=== PATIENT | male | born 1985 | race Caucasian/White ===

== ENCOUNTER 2023-06-09 10:22 | Outpatient (AMB) | payer OTHER, SELFPAY ==
--- NOTE | 2023-06-09 04:53 | A.OFFVIS_ITS ---
Intake Intake Visit Reasons: Circumcision consult Intake Note: New Patient is Present for Circumcision/Infection on foreskin Current Medication: None Antibiotic Allergy: None Blood Thinner: None Pharmacy: [facility] Allergies No Known Allergies Allergy (Verified 06/09/23 11:11) Medication List - Last Reconciled 06/09/23 by Jazmin Olivier MD aripiprazole 20 mg PO DAILY blood sugar diagnostic (FreeStyle Lite Strips) As directed citalopram 40 mg PO QAM clotrimazole-betamethasone 1-0.05 % 1 appl topical BID PRN 2 weeks dulaglutide (Trulicity) mg subcut QWEEK empagliflozin (Jardiance) 25 mg PO DAILY lancets (TRUEplus Lancets) As directed lisinopril-hydrochlorothiazide 20-25 mg 1 tab PO DAILY mirtazapine 22.5 mg PO BEDTIME HPI HPI Comments History of Present Illness Details Rudolph is a 37-year-old male who presents today to the office to establish as a new patient for circumcision consult. 06/09/2023? He presents today for circumcision consult. He has a past medical history significant for type 2 diabetes. He is on Trulicity and Jardiance. He was referred to the office by Yordy Banda on 02/27/2023. He has been having problems retracting the foreskin and also getting rash. He has tried a cream to treat his rash that was not beneficial He denies any burning with urination; however, reports itchiness with urination . Plan: Discussed circumcision to be scheduled. Consent was obtained for circumcision procedure. Lotrisone cream prn until the procedure. Ordered hemoglobin A1c. [facility] Medical History Phimosis of penis Type 2 diabetes mellitus without complications Review of Systems Const All systems reviewed & are unremarkable except as noted in HPI and below Reports no additional complaints Eyes Reports no additional complaints ENT Reports no additional complaints Card Denies dyspnea Resp Denies cough and Denies dyspnea GI Reports no additional complaints Musc Reports no additional complaints Skin/Breast Details: vitiligo Denies rash and Denies unusual bruising Neuro Reports no additional complaints Psych Reports no additional complaints Endo Reports no additional complaints Lauri/Lymph Reports no additional complaints Aller/Immun Reports no additional complaints Physical Exam Const General: healthy appearing and no acute distress Nutritional Appearance: obese Orientation/consciousness: patient oriented x3 HEENT Head: Yes normocephalic and Yes atraumatic Eyes Conjunctivae: conjunctivae normal Neck Neck: Yes normal visual inspection Chest Chest palpation & inspection: normal inspection of the chest Resp Effort & Inspection: normal respiratory effort Cardio Rate: regular rate GI Inspection: Yes normal to inspection Palpation (GI): Soft to palpation Penis: uncircumcised and non retractile foreskin Scrotum: scrotum normal Skin Other: vitiligo Neuro General: patient oriented x3 Extrem General: No pedal edema Psych Appearance: grossly normal Affect: normal affect Results AMB Urinalysis, Automated UA Leukoctes 0 Taran/uL Last Edit by SHERYL Rhodes on 06/09/23 11:20 UA Nitrite Negative Last Edit by Leana Acevedo [facility] on 06/09/23 11:20 UA Urobilinogen 0.2 mg/dL Last Edit by SHERYL Rhodes on 06/09/23 11:2 0 UA Protein 15 mg/dL Last Edit by Leana Acevedo [facility] on 06/09/23 11:20 UA pH 5.0 Last Edit by SHERYL Rhodes on 06/09/23 11:20 UA Blood 0 Jules/uL Last Edit by Leana Acevedo [facility] on 06/09/23 11:20 UA Specific Constantia 1.025 Last Edit by Leana Acevedo [facility] on 06/09/23 11: 20 UA Ketone Negative Last Edit by SHERYL Rhodes on 06/09/23 11:20 UA Bilirubin 0 mg/dL Last Edit by Leana Acevedo [facility] on 06/09/23 11:20 UA Glucose 1000 mg/dL Last Edit by Leana Acevedo [facility] on 06/09/23 11:20 Results Reviewed Results Reviewed: Laboratory Last Values Urine pH (Auto) 5.0 06/09/23 11:12 Specific Constantia (Auto) 1.025 06/09/23 11:12 Urine Protein (Auto) 15 mg/dL 06/09/23 11:12 Glucose (UA)(Auto) 1000 mg/dL 06/09/23 11:12 Urine Ketones (Auto) Negative 06/09/23 11:12 Urine Blood (Auto) 0 Jules/uL 06/09/23 11:12 Urine Nitrite (Auto) Negative 06/09/23 11:12 Urine Bilirubin (Auto) 0 mg/dL 06/09/23 11:12 Urine Urobilinogen (Auto) 0.2 mg/dL 06/09/23 11:12 Leukocyte Esterase (Auto) 0 Taran/uL 06/09/23 11:12 Assessment & Plan Assessment & Plan (1) Balanitis: Code(s): N48.1 - Balanitis Plan Discussed circumcision to be scheduled. Consent was obtained for circumcision procedure. Lotrisone cream prn until procedure Ordered hemoglobin A1c. Orders: Orders AMB Urinalysis Automated Today Z13.9 - Encounter for screening, unspecified Medications: New clotrimazole-betamethasone 1-0.05 % 1 appl topical BID 2 weeks PRN 45 grams 1RF balanitis Patient Instructions: The patient had an opportunity to ask questions regarding treatment plan. All questions were answered. Imaging, Laboratory studies and physical exam results were discussed and reviewed in detail. No major barriers to understanding were identified. The patient expressed understanding and agreement with the above treatment plan.? ? ? The patient is aware they should contact our office by phone for worsening of their current condition or the appearance of new symptoms. Compliance is encouraged with any medications and followup testing that is ordered.? ? ? It is a privilege to be allowed the opportunity to participate in the urologic care of your patient. If you have any questions or concerns regarding treatment for the above conditions please do not hesitate to contact me. The office telephone contact is [phone].? ? ? This note is constructed in part using voice recognition software. While every effort has been made to ensure accuracy ranch cook errors may have been included.? ? ? Yours sincerely,? ? ? Jazmin Olivier MD? Coding Level of Care Code New Pt Level 4 (16464) Diagnoses Balanitis N48.1
== END 2023-06-09 11:33 | disposition home or self-care (01) ==
PROVIDERS: PCP Internal Medicine; Visit Provider Urology
DX: Z13.9 Encounter for screening, unspecified (principal); N48.1 Balanitis
CPT/HCPCS: 99204

== ENCOUNTER → 2023-06-09 10:22 | Outpatient (BNVA) | payer OTHER, SELFPAY | PROVIDERS: PCP Internal Medicine; Visit Provider Urology | DX: Z41.2 Encounter for routine and ritual male circumcision (principal); N47.1 Phimosis; N48.1 Balanitis; E11.9 Type 2 diabetes mellitus without complications | CPT/HCPCS: 81003; 99202 ==

== ENCOUNTER 2023-07-04 10:30 | Outpatient (REF) | payer OTHER, SELFPAY ==
[2023-07-04 11:53] LABS: Estimated Average Glucose 203 mg/dL; Hemoglobin A1c % 8.7 % (<6.0)
[2023-07-04 12:04] LABS: Glucose Fasting 159 mg/dL (60-99)
== END 2023-07-04 10:31 | disposition home or self-care (01) ==
LOC: HO.LAB 10:30
PROVIDERS: Visit Provider Urology
DX: E11.9 Type 2 diabetes mellitus without complications (principal); N48.1 Balanitis
CPT/HCPCS: 36415; 82947; 83036

== ENCOUNTER 2023-07-15 06:53 | Day surgery (SDC) | payer OTHER, SELFPAY ==
[2023-07-11 11:05] VITALS: BMI 43.6
[2023-07-11 11:35] VITALS: BMI 38.0
--- NOTE | 2023-07-14 09:36 | P.CONAN_ITS ---
Documented by User: Monica Rosenberg NP 07/14/23 09:37 HPI - Anesthesia Eval Consult details Narrative: 37yo M for Circumcision PMFSH Active Problems Active Problems: All Active Problems (Updated 07/11/23 @ 11:35 by Paz Chun, J CARLOS) Diabetes (Acute) Balanitis (Acute) Past Medical History Medical History (Updated 07/15/23 @ 07:36 by Beverley Heart, RN) GUILLERMINA (obstructive sleep apnea) Depression Anxiety HTN (hypertension) Type 2 diabetes mellitus without complications Phimosis of penis Surgical History Surgical History (Updated 07/15/23 @ 07:36 by Beverley Heart, RN) Hx of wisdom tooth extraction Social History Social History (Updated 07/11/23 @ 11:38 by Paz Chun RN) Patient Tobacco Use Status: Never used Tobacco Use of substances other than those prescribed or required for medical reasons: No Are you DNR?: No Advance Directives: No Advance Directives Information Provided: Yes Advance Directives on File: No Meds Allergies Allergy/AdvReac Type Severity Reaction Status Date / Time No Known Allergies Allergy Verified 07/15/23 07:36 Home Medications Medication Instructions Recorded Confirmed Last Taken Type aripiprazole 20 mg tablet 20 mg PO DAILY 06/09/23 07/11/23 Unknown History blood sugar diagnostic (FreeStyle #10 ea 06/09/23 06/09/23 Unknown History Lite Strips) citalopram 40 mg tablet 40 mg PO QAM 06/09/23 07/11/23 Unknown History dulaglutide 1.5 mg/0.5 mL mg subcut QWEEK 06/09/23 06/09/23 Unknown History subcutaneous pen injector (Trulicity) empagliflozin 25 mg tablet 25 mg PO DAILY 06/09/23 07/11/23 Unknown History (Jardiance) lancets 33 gauge (TRUEplus Lancets) #100 ea 06/09/23 06/09/23 Unknown History lisinopril 20 1 tab PO DAILY 06/09/23 07/11/23 Unknown History mg-hydrochlorothiazide 25 mg tablet mirtazapine 15 mg tablet 22.5 mg PO BEDTIME 06/09/23 07/11/23 Unknown History Exam Exam Date and Time: July 14, 2023 0936 Height,Weight and Vital Signs: Height 5 ft 4 in Weight 113.398 kg Assessment and Plan Assessment Anesthesia Assessment: Chart Reviewed Documented by User: Vazquez Rodriguez MD 07/15/23 08:29 [facility] Past Medical History Medical History (Updated 07/15/23 @ 07:36 by Beverley Heart RN) GUILLERMINA (obstructive sleep apnea) Depression Anxiety HTN (hypertension) Type 2 diabetes mellitus without complications Phimosis of penis Family History Family history of problems with anesthesia: No Surgical History Surgical History (Updated 07/15/23 @ 07:36 by Beverley Heart RN) Hx of wisdom tooth extraction History of Problems with Anesthesia: No Social History Social History (Updated 07/11/23 @ 11:38 by Paz Chun RN) Patient Tobacco Use Status: Never used Tobacco Use of substances other than those prescribed or required for medical reasons: No Are you DNR?: No Advance Directives: No Advance Directives Information Provided: Yes Advance Directives on File: No Meds Allergies Allergy/AdvReac Type Severity Reaction Status Date / Time No Known Allergies Allergy Verified 07/15/23 07:36 Home Medications Medication Instructions Recorded Confirmed Last Taken Type aripiprazole 20 mg tablet 20 mg PO DAILY 06/09/23 07/11/23 Unknown History blood sugar diagnostic (FreeStyle #10 ea 06/09/23 06/09/23 Unknown History Lite Strips) citalopram 40 mg tablet 40 mg PO QAM 06/09/23 07/11/23 Unknown History dulaglutide 1.5 mg/0.5 mL mg subcut QWEEK 06/09/23 06/09/23 Unknown History subcutaneous pen injector (Trulicity) empagliflozin 25 mg tablet 25 mg PO DAILY 06/09/23 07/11/23 Unknown History (Jardiance) lancets 33 gauge (TRUEplus Lancets) #100 ea 06/09/23 06/09/23 Unknown History lisinopril 20 1 tab PO DAILY 06/09/23 07/11/23 Unknown History mg-hydrochlorothiazide 25 mg tablet mirtazapine 15 mg tablet 22.5 mg PO BEDTIME 06/09/23 07/11/23 Unknown History Exam Airway Mallampati Class: II TM Dist: <=3cm Neck ROM: Full Loose/Missing/Broken Teeth: Yes and Upper Heart: ok Lungs: ok Assessment and Plan Assessment Anesthesia Assessment: Anesthesia Plan Discussed Final Anesthetic Review Family History of Problems with Anesthesia: No History of Problems with Anesthesia: No NPO: Yes ASA Class: III Final Preanesthetic Review: No Changes in Pt Med Stat, Meds/Allgs Chart Reviewed, Consent Obtained/Reviewed and Anes Risks/Benef Reviewed Patient Risk: Intermediate Procedure Risk: Low Anesthetic Plan Anesthetic Plan: GA and Agree w/ Assess. and Plan Disposition: Standard PACU
[2023-07-15] VITALS (7 sets, daily range): BP systolic 102–123; BP diastolic 40–69; PULSE 69–78; RESP 12–18; TEMP 36.3–37.1; O2SAT 91–96
[2023-07-15] MEDS: Lactated Ringers 1,000 ML 100 ML IVCONT (07:18)
[2023-07-15 07:20] LABS: Glucose, Whole Blood 215 mg/dL (60-115)
--- NOTE | 2023-07-15 08:19 | PC.NURSE ---
dr. moore aware of poc and that patient uses cpap and lcta - slightly diminished in bilateral bases. no interventions at this time.
--- NOTE | 2023-07-15 10:24 | W.PM.OPN ---
Operative Note Operative Note Date of Service: 07/15/23 Narrative: PreOperative Diagnosis:? ? Balanitis, phimosis Post Operative Diagnosis:?Balanitis, phimosis Procedure:?Circumcision Surgeon:?Dr Jazmin Olivier Anesthesia:? General Procedure: After informed consent was verified the patient was brought to the operating room and placed in a supine position.? Anesthesia was performed per protocol. The patient was prepped and draped in the usual sterile fashion. Safety pause time-out was performed. Antibiotics confirmed. Penile block was performed with mixture of 1% lidocaine and 0.5% marcaine plain. With the foreskin over the glans a circumferential incision is made through the skin and superficial dartos, at the level of the mcgrath. The fore skin was then retracted and a circumferential incision was made 0.5 cm below the mcgrath. The foreskin was removed with cautery. The skin was closed in 4 quadrants with 4-0 chromic, each quadrant closed with interrupted 4-0 chromic, bacitracin ointment was used over the incision and incision covered with cling. The patient tolerated the procedure well and was transferred to the recovery area upon completion. Complications: None
[2023-07-15] MEDS: oxyCODONE HCl Immed Release 5 MG TABLET PO (10:42)
== END 2023-07-15 11:31 | disposition home or self-care (01) ==
PROVIDERS: Visit Provider Urology
PROC: (CPT 54161; principal; 2023-07-15 08:40)
DX: N48.1 Balanitis (principal); N47.1 Phimosis; I10 Essential (primary) hypertension; E11.9 Type 2 diabetes mellitus without complications; Z79.85 Long-term (current) use of injectable non-insulin antidiabetic drugs; Z79.899 Other long term (current) drug therapy
CPT/HCPCS: 54161; 82947; 88304; J0131; J0690; J1885; J2405; J2795; J3010

== ENCOUNTER → 2023-07-15 06:53 | Outpatient (BNV) | payer OTHER, SELFPAY | PROVIDERS: Visit Provider Urology | DX: N48.1 Balanitis (principal) | CPT/HCPCS: 54161 ==

== ENCOUNTER 2024-06-21 09:32 | Outpatient (REF) | payer OTHER, SELFPAY ==
[2024-06-21 14:58] LABS: Alanine Aminotransferase 48 U/L (0-40); Albumin Level 4.8 g/dL (3.5-5.0); Alkaline Phosphatase 89 U/L (39-117); Anion Gap 16 (12-20); Aspartate Amino Transferase 41 U/L (5-37); Blood Urea Nitrogen 10 mg/dL (9-16); Calcium 10.4 mg/dL (8.4-10.2); Carbon Dioxide 26 mmol/L (22-29); Chloride 105 mmol/L (96-108); Cholesterol 182 mg/dL (<200); Estimated Glomerular Filt Rate > 60; Glucose Random 150 mg/dL (60-115); HDL Cholesterol 34 mg/dL (>40); LDL Cholesterol Calculated 81 mg/dL (<100); Potassium 3.3 mmol/L (3.3-5.1); Sodium 144 mmol/L (135-145); Total Protein 8.4 g/dL (6.5-8.0); Triglycerides 339 mg/dL (<150)
[2024-06-21 15:16] LABS: TSH reflex Free T4 2.48 uIU/mL (0.32-4.0)
[2024-06-21 15:24] LABS: Creatinine Urine 71.49 mg/dL; Microalbum/Creatinine Ratio Ur 76.9 ug/mg cr (<30)
[2024-06-22 04:36] LABS: ~HepC Num1 0.21 S/CO (0.00-0.79); ~Hepatitis C Antibody Nonreactive (Nonreactive)
[2024-06-22 04:52] LABS: HIV AB/AG Nonreactive (Nonreactive); HIV Num 1 0.05 S/CO (0.00-0.99)
== END 2024-06-21 09:33 | disposition home or self-care (01) ==
LOC: HO.CHCLDS 09:32
PROVIDERS: Visit Provider Internal Medicine
DX: L21.9 Seborrheic dermatitis, unspecified (principal); E11.9 Type 2 diabetes mellitus without complications; I10 Essential (primary) hypertension
CPT/HCPCS: 36415; 80053; 80061; 82043; 82570; 84443; 86803; 87389

== ENCOUNTER 2025-02-10 09:15 | Outpatient (REF) | payer OTHER, SELFPAY ==
--- OUTSIDE RECORDS SUMMARY | 2025-02-10 10:02 | XMS_ITS | Encounter Summary ---
Author Organization [employer] Address [address] [facility] 7[address] [place] [address] Care Team Providers Care Die Cast Technician Name Role Phone Yordy Banda MD Primary Care Provider [phone] Cherie Fung PharmD Unavailable [phone] Encounter Details Date Type Department Care Team (Latest Contact Info) Description 02/10/2025 Travel Social History Tobacco Use Types Packs/Day Years Used Date Smoking Tobacco: Never Smokeless Tobacco: Never Alcohol Use Standard Drinks/Week Comments Never 0 (1 standard drink = 0.6 oz pur e alcohol) Depression Answer Date Recorded Patient Health Questionnaire-9 Score 0 02/27/2023 Housing Stability Answer Date Recorded What is your housing situation today? I am not s ure 11/08/[address] you li ve. Do you have problems with any of the following? Inadequate heat 11/08/2024 Food Insecurity Answer Date Recorded Within the past 12 months, y ou worried that your food would run out before you got money to buy more: Never True 2024 Within the past 12 months,th e food you bought just didn't last and you didn't have enough money to get more: Sometimes True 11/08/2024 Transportation Answer Date Recorded In the past 12 months, has l ack of transportation kept you from medical appts, meetings, work or from getting things needed for daily living? No 03/25/2024 Utilities Answer Date Recorded In the past 12 months, has t he electric, gas, oil or water company threatened to shut off services in your home? No 03/25/2024 Depression Answer Date Recorded Patient Health Questionnaire-2 Score 1 11/08/2024 Internet Access Answer Date Recorded Internet Access Q1 Yes 11/08/2024 Internet Access Q2 Not on file 11/08/2024 Sex and Gender Information Value Date Recorded Sex Assigned at Male 08/12/2022 10:32 AM EDT Legal Sex Male 10:32 AM EDT Gender Identity Male 08/12/2022 10:32 AM EDT Sexual Orientation Pratt 11/14/2022 9: 24 AM EST documented as of this encounter Plan of Treatment Upcoming Encounters Date Type Department Care Team (Late st Contact Info) Description 02/21/2025 2:00 PM EDT Office Visit [facility] [address] [place] [address] Yordy Banda MD [address] [place] [address] 03/10/2025 9:00 AM EDT Telemedicine [facility] [address] [place] [address] Cherie Fung, [place] [address] [place] [address] 05/12/2025 9:15 AM EDT Office Visit [facility] [address] [place] [address] Yordy Banda MD [address] [place] [address] documented as of this encounter Goals Goal Patient Goal Type Associated Problems Recent Progress Patient-Stated? Author Hemoglobin A1c < 7 Result Component 8.4(02/07/2025 10:03 AM EDT) No Prasanna Pryor, PharmD documented as of this encounter Visit Diagnoses Not on filedocumented in this encounter Additional Health Concerns Assessment Noted Time PHQ-9 Depression Total Score: 0 02/28/20 23 9:14 AM EDT documented as of this encounter Care Teams Die Cast Technician Relationship Specialty Start Date End Date Yordy Banda MD [address] [place] [address] PCP - General Internal Medicine 08/21/17 Cherie Fung, PharmD [address] [place] [address] Pharmacist Internal Medicine 11/09/24 documented as of this encounter
--- OUTSIDE RECORDS SUMMARY | 2025-02-10 10:02 | XMS_ITS | Encounter Summary ---
Author Organization [employer] Address [address] [facility] 7 [place] [address] Care Team Providers Care Chair Spring Assembler Name Role Phone Yordy Banda MD Primary Care Provider [phone] Prasanna Pryor PharmD Unavailable Unavail able Cherie Fung PharmD Unavailable [phone] Reason for Visit * Reason Onset Date Comments Results 07/30/2024 Encounter Details Date Type Department Care Team ([facility] st Contact Info) Description 07/30/2024 Telephone [facility] MED[facility] [address] [place] [address] Yordy Banda MD [address] [place] [address] Results Social History Tobacco Use Types Packs/Day Years Used Date Smoking Tobacco: Never Smokeless Tobacco: Never Alcohol Use Standard Drinks/Week Comments Never 0 (1 standard drink = 0.6 oz pur e alcohol) Depression Answer Date Recorded Patient Health Questionnaire-9 Score 0 02/27/2023 Housing Stability Answer Date Recorded What is your housing situation today? I have francisca steinberg 03/25/[address] you li ve. Do you have problems with any of the following? None of the above 03/25/2024 Food Insecurity Answer Date Recorded Within the past 12 months, y ou worried that your food would run out before you got money to buy more: Never True 03/25/2024 Within the past 12 months,th e food you bought just didn't last and you didn't have enough money to get more: Never True Transportation Answer Date Recorded In the past [...] Answer Date Recorded Patient Health Questionnaire-2 Score 0 02/27/2023 Sex and Gender Information Value Date Recorded Sex Assigned at Male 08/12/2022 10:32 AM EDT Legal Sex Male 10:32 AM EDT Gender Identity Male 08/12/2022 10:32 AM EDT Sexual Orientation Pratt 11/14/2022 9: 24 AM EST documented as of this encounter Miscellaneous Notes * Telephone Encounter - Dev Morley - 07/30/2024 11:43 AM EDT TC from pt requesting call back regarding Results. Type of results: US Date when done: 07/27 Facility: [facility] documented in this encounter Plan of Treatment Upcoming Encounters Date Type Department Care Team (Late st Contact Info) Description 02/21/2025 2:00 PM EDT Office Visit [facility] MED & PEDS [address] [place] [address] Yordy Banda MD [address] [place] [phone] 03/10/2025 9:00 AM EDT Telemedicine [facility] MED [facility] PED[facility] [address] [place] [address] Cherie Fung, PharmD [address] [place] [address] 05/12/2025 9:15 AM EDT Office Visit [facility] MED [facility] PEDS [address] [place] [address] Yordy Banda MD [address] [place] [address] documented as of this encounter Goals Goal Patient Goal Type Associated Problems Recent Progress Patient-Stated? Author Hemoglobin A1c < 7 Result Component 8.4(02/07/2025 10:03 AM EDT) No Prasanna Pryor, PharmD documented as of this encounter Visit Diagnoses Not on filedocumented in this encounter Additional Health Concerns Assessment Noted Time PHQ-9 Depression Total Score: 0 02/28/20 9:14 AM EDT documented as of this encounter Care Teams Chair Spring Assembler Relationship Specialty Start Date End Date Yordy Banda MD [address] [place] [address] PCP - General Internal Medicine 08/21/17 Prasanna Pryor, PharmD [address] [place] [address] Pharmacist Internal Medicine 02/10/23 11/09/24 Cherie Fung, JoannD [address] [place] [address] Pharmacist Internal Medicine 11/09/24 documented as of this encounter
--- OUTSIDE RECORDS SUMMARY | 2025-02-10 10:02 | XMS_ITS | Encounter Summary ---
Author Organization [employer] Address [address] [facility] 7 [place] [address] Care Team Providers Care Library Attendant Name Role Phone Yordy Banda MD Primary Care Provider [phone] Cherie Fung PharmD Unavailable [phone] Encounter Details Date Type Department Care Team ([facility] st Contact Info) Description 02/06/2025 Orders Only [facility] PEDS [address] [place], [place] [phone] Yordy Banda MD [address] [place] [address] Social History Tobacco Use Types Packs/Day Years [...] Description 02/21/2025 2:00 PM EDT Office Visit [facility] [address] [place] [address] Yordy Banda MD [address] [place] [address] 03/10/2025 9:00 AM EDT Telemedicine [facility] [address] [place] [address] Cherie Fung PharmD [address] [place] [phone] 05/12/2025 9:15 AM EDT Office Visit [facility] [address] [place] [address] Yordy Banda MD [address] [place] [address] documented as of this encounter Goals Goal [...] documented as of this encounter Care Teams Library Attendant Relationship Specialty Start Date End Date Yordy Banda MD [address] [place] [address] PCP - General Internal Medicine 08/21/17 Cherie Fung, JoannD [address] [place] [address] Pharmacist Internal Medicine 11/09/24 documented as of this encounter
--- OUTSIDE RECORDS SUMMARY | 2025-02-10 10:02 | XMS_ITS | Encounter Summary ---
Author Organization [employer] Address [address] [facility] 7 [place] [address] Care Team Providers Care Assembler Molded Frames Name Role Phone Yordy Banda MD Primary Care Provider [phone] Prasanna Pryor PharmD Unavailable Unavail able Cherie Fung PharmD Unavailable [phone] Encounter Details Date Type Department Care Team ([facility] st Contact Info) Description 10/25/2024 Orders Only [facility] & PEDS [address] [place], [place] [phone] Yordy Banda MD [address] [place] [address] Encounter for HIV pre-exposure prophylaxis Social History Tobacco Use Types Packs/Day Years [...] Office Visit [facility] [address] [place] [address] Yordy Banda MD [address] [place] [phone] 03/10/2025 9:00 AM EDT Telemedicine [facility] [address] [place] [address] Cherie Fung PharmD [address] [place] [address] 05/12/2025 9:15 AM EDT Office Visit [facility] [address] [place] [address] Yordy Banda MD [address] [place] [address] documented as of this encounter Goals Goal Patient Goal Type Associated Problems Recent Progress Patient-Stated? Author Hemoglobin A1c < 7 Result Component 8.4(02/07/2025 10:03 AM EDT) No Prasanna Pryor, PharmD documented as of this encounter Visit Diagnoses Diagnosis Encounter for HIV pre-exposure prophylaxis documented in this encounter Additional Health Concerns Assessment Noted Time PHQ-9 Depression Total Score: 0 02/28/20 23 9:14 AM EDT documented as of this encounter Care Teams Assembler Molded Frames Relationship Specialty Start Date End Date Yordy Banda MD [address] [place] [address] PCP - General Internal Medicine 08/21/17 Prasanna Pryor, JoannD [address] [place] [address] Pharmacist Internal Medicine 02/10/23 11/09/24 Cherie Fung, JoannD [address] [place] [phone] Pharmacist Internal Medicine 11/09/24 documented as of this encounter
--- OUTSIDE RECORDS SUMMARY | 2025-02-10 10:02 | XMS_ITS | Encounter Summary ---
Author Organization [employer] Address [address] [place] [address] [address] [place] [address] Care Team Providers Care [employer] Travel Counselor Name Role Phone Yordy Banda MD Primary Care Provider [phone] Cherie Fung PharmD Unavailable [phone] Reason for Visit * Reason Comments Follow-up Chronic conditions Encounter Details Date Type Department Care Team ([facility] Contact Info) Description 02/07/2025 11:00 AM EDT Office Visit [facility] [address], [place] [id number] Yordy Banda MD [address] [place] [address] Herpes zoster without complication (Primary Dx); Type 2 diabetes mellitus without complication, without long-term current use of insulin ([facility]); Subconjunctival hemorrhage of right eye; Obstructive sleep apnea syndrome; Dietary counseling; Exercise counseling; Class 2 severe obesity due to excess calories with serious comorbidity and body mass index (BMI) of 38.0 to 38.9 in adult ([facility]/HCC) Social History Tobacco Use Types Packs/Day Years [...] AM EST documented as of this encounter Last Filed Vital Signs Vital Sign Reading Time Taken Comments Blood Pressure 130/78 02/07/2025 10:02 AM EDT Pulse 82 02/07/2025 10:02 AM EDT Temperature 36.5 ??C (97.7 ??F) 02/07/2025 10:02 AM E DT Respiratory Rate 14 02/07/2025 10:02 AM EDT Oxygen Saturation 98% 02/07/2025 10:02 AM EDT Inhaled Oxygen Concentration - - Weight 116 kg (256 lb) 02/07/2025 10:02 AM EDT Height 172.7 cm (5' 8 ) 02/07/2025 10:02 AM EDT Body Mass Index 38.92 02/07/2025 10:02 AM EDT documented in this encounter Progress Notes * Yordy Banda MD - 02/07/2025 11:00 AM EDT SUBJECTIVE Rudolph Rutledge is a 39 y.o. male who presents for Follow-up (Chronic conditions ). HPI 1) h/o T2DM. Started on Mounjaro. Medication well tolerated. No reported hypoglycemia 2) redness/swelling and itchiness of the left arm x 2 days in a pt w/ h/o Shingle. 3) redness of the right eye x 1 week. Slowly improving. No trauma. No drainage/itchiness. 4) h/o sleep apnea. Pt's CPAP shows an error code. Pt has not used his CPAP x about 1 month. Patient Active Problem List Diagnosis Asperger's disorder Chronic low back pain Depressive disorder Heel pain Hypertensive disorder Obstructive sleep apnea syndrome Type 2 diabetes mellitus (CMS/HCC) Swelling of left eyelid Herpes zoster without complication Obesity (BMI 30-39.9) Allergies Allergen Reactions Metformin Diarrhea Current Outpatient Medications on File Prior to Visit Medication Sig Dispense Refill Alcohol Swabs (Alcohol Prep) 70 % pads TEST BLOOD SUGAR THREE TIMES DAILY 100 each 11 ARIPiprazole (Abilify) 20 MG tablet Take 1 tablet by mouth at bed time. Blood Glucose Monitoring Suppl (SaveMeetingStyle [place] Lite) w/Device kit Use to test blood sugar 1 times daily 1 kit 0 chlorhexidine (Hibiclens) 4 % external liquid Apply topically if needed each day for wound care. 118 mL 0 cholecalciferol (Vitamin D3) 25 MCG (1000 UT) tablet Take by mouth in the morning. citalopram (CeleXA) 40 MG tablet Take 40 mg by mouth in the morning. Descovy 200-25 MG tablet TAKE ONE TABLET EVERY MORNING 30 tablet 2 Easy Touch Lancets 33G/Twist misc TEST BLOOD SUGAR THREE TIMES DAILY 100 each 11 econazole nitrate 1 % cream Apply topically Once per day. 30 g 0 FREESTYLE LITE test strip TEST BLOOD SUGAR THREE TIMES DAILY 100 strip 11 gabapentin (Neurontin) 100 MG capsule Take 3 capsules (300 mg) by mouth every 8 (eight) hours. 270 capsule 11 glucose 4 g chewable tablet Chew 4 tablets (16 g) if needed for low blood sugar. 50 tablet 11 glucose-vitamin C 4-6 GM-MG oral gel To take 1 tab if FS < 70 mg/dl Jardiance 25 MG TAKE 1 TABLET EVERY MORNING 30 tablet 5 ketoconazole (Nizoral) 2 % shampoo Apply topically 2 (two) times a week. 120 mL 1 lisinopril-hydroCHLOROthiazide 20-25 MG tablet TAKE ONE TABLET EVERY MORNING 90 tablet 1 mirtazapine (Remeron) 15 MG tablet Take 1.5 tablets by mouth at bedtime. repaglinide (Prandin) 0.5 MG tablet Take 1 tablet (0.5 mg) by mouth before breakfast, before lunch,and before evening meal. 90 tablet 11 rosuvastatin (Crestor) 20 MG tablet Take 1 tablet (20 mg) by mouth Once per day. 30 tablet 11 Tirzepatide (Mounjaro) 5 MG/0.5ML solution auto-injector Inject 5 mg under the skin 1 (one) time per week. 2 mL 2 No current facility-administered medications on file prior to visit. Review of Systems OBJECTIVE Vitals: 02/07/25 1002 BP: 130/78 BP Location: Left arm Patient Position: Sitting BP Cuff Size: Large adult Pulse: 82 Resp: 14 Temp: 97.7 ??F (36.5 ??C) TempSrc: Oral SpO2: 98% Weight: 256 lb (116 kg) Height: 5' 8 (1.727 m) Physical Exam Constitutional: General: He is not in acute distress. Appearance: Normal appearance. He is not ill-appearing, toxic-appearing or diaphoretic. Eyes: General: Right eye: No foreign body. Left eye: No foreign body. Conjunctiva/sclera: Right eye: Hemorrhage present. Cardiovascular: Rate and Rhythm: Normal rate and regular rhythm. Pulmonary: Effort: Pulmonary effort is normal. Skin: General: Skin is warm. Comments: 1.5x1.5 cm round and slightly raised erythematous patch of the left posterior arm. Neurological: General: No focal deficit present. Mental Status: He is alert. Assessment/Plan Assessment/Plan Diagnoses and all orders for this visit: Herpes zoster without complication - valACYclovir (Valtrex) 1 g tablet; Take 1 tablet (1,000 mg) by mouth 2 times daily for 7 days. Type 2 diabetes mellitus without complication, without long-term current use of insulin ([facility]) Comments: Improved on Mounjaro. A1c 8.4% but still not at goal Follow up w/ Cherie as scheduled for titration of his medication. Low carb diet. Orders: - POCT A1C - POCT glucose manually resulted Subconjunctival hemorrhage of right eye - dextran 70-hypromellose (artificial tears) 0.1-0.3 % ophthalmic solution; Administer 1 drop into the right eye if needed in the morning, at noon, and at bedtime for dry eyes. To contact the office if the lesion is not completely resolved in the next week or so. Obstructive sleep apnea syndrome Comments: advised to call his supplier. Pt is to inform us if a new sleep study is needed for us to order it. Dietary counseling Exercise counseling Class 2 severe obesity due to excess calories with serious comorbidity and body mass index (BMI) of38.0 to 38.9 in adult ([facility]) Dietary Recommendations: Fruits, vegetables, whole grains, protein foods, and fat-free or low-fat dairy products are healthychoices. Eat different types of protein foods in your diet. This can include seafood, lean meats, poultry, beans, peas, lentils, nuts, seeds, soy products, and eggs. Limit foods and beverages higher in added sugars, saturated fat, and sodium. Exercise Recommendations: At least 150 minutes of moderate-intensity physical activity per week, or an equivalent combinationof moderate- and vigorous-intensity activity documented in this encounter Plan of Treatment Upcoming Encounters Date Type Department Care Team (Late st Contact Info) Description 02/21/2025 2:00 PM EDT Office Visit [facility] [address] [place] [address] Yordy Banda MD [address] [place] [address] 03/10/2025 9:00 AM EDT Telemedicine [facility] [address] [place] [address] Cherie Fung, PharmD [address] [place] [address] 05/12/2025 9:15 AM EDT Office Visit [facility] [address] [place] [address] Yordy Banda MD [address] [place] [address] documented as of this encounter Goals Goal Patient Goal Type Associated Problems Recent Progress Patient-Stated? Author Hemoglobin A1c < 7 Result Component 8.4(02/07/2025 10:03 AM EDT) No Prasanna Pryor, JoannD documented as of this encounter Procedures Procedure Name Priority Date/Time Associated Diagnosis Comments POCT GLYCATED HEMOGLOBIN, TOTAL Routine 02/07/2025 10:03 AM EDT Type 2 diabetes mellitus without complication, without long-term current use of insulin ([facility]) POCT GLUCOSE Routine 02/07/2025 10:03 AM EDT Type 2 diabetes mellitus without complication, without long-term current use of insulin ([facility]) documented in this encounter Results * (ABNORMAL) POCT glucose manually resulted (02/07/2025 10:03 AM EDT) Glucose Blood, POC 210(A) 60 - 200 mg/dL QC Media Lot # Comment:[id number] Lot# Expiration Date Comment:04/14/2025 Blood Capillary blood specimen / Unknown 02/07/2025 10:03 AM EDT us Yordy Banda MD POINT OF CARE TEST ENTER/ED IT ORDERABLES Final Result * (ABNORMAL) POCT A1C (02/07/2025 10:03 AM EDT) Hemoglobin A1C 8.4(A) 4.0 - 6.0 % QC Media Lot # Comment:[id number] Lot# Expiration Date Comment:08/31/2026 Blood 02/07/2025 10:0 3 AM EDT us Yordy Banda MD POINT OF CARE TEST ENTER/ED IT ORDERABLES Final Result documented in this encounter Visit Diagnoses Diagnosis Herpes zoster without complication- Primary Type 2 diabetes mellitus without complication, without long-term current use of insulin ([facility]) Subconjunctival hemorrhage of right eye Obstructive sleep apnea syndrome Obstructive sleep apnea (adult) (pediatric) Dietary counseling Dietary surveillance and counseling Exercise counseling Class 2 severe obesity due to excess calories with serious comorbidity and body mass index (BMI) of 38.0 to 38.9 in adult (CMS/HCC) documented in this encounter Additional Health Concerns Assessment Noted Time PHQ-9 Depression Total Score: 0 02/28/20 23 9:14 AM EDT documented as of this encounter Care Teams [employer] Counselor Relationship Specialty Start Date End Date Yordy Banda MD [address] [place] [address] PCP - General Internal Medicine 08/21/17 Cherie Fung PharmD [address] [place] [address] Pharmacist Internal Medicine 11/09/24 documented as of this encounter
--- OUTSIDE RECORDS SUMMARY | 2025-02-10 10:02 | XMS_ITS | Clinical Summary ---
Author Organization [email or web address] Address 75 [facility] 7t [place] [address] Care Team Providers Care Engineering Mathematician Name Role Phone Yordy Banda MD Primary Care Provider [phone] Cherie Fung PharmD Unavailable [phone] Allergies Active Allergy Reactions Criticality Noted Date Comments Metformin Diarrhea Medium 11/17/2023 Medications ARIPiprazole (Abilify) 20 MG tablet Take 1 tablet by mouth at bed time. Active glucose-vitamin C 4-6 GM-MG oral gel To take 1 tab if FS < 70 mg/dl 07/26/20 21 Active citalopram (CeleXA) 40 MG tablet Take 40 mg by mouth in the morning. 01/07/20 23 Active mirtazapine (Remeron) 15 MG tablet Take 1.5 tablets by mouth at bedtime. 02/04/20 23 Active glucose 4 g chewable tablet Chew 4 tablets (16 g) if needed for low blood sugar. 50 tablet 11 02/11/20 23 Active chlorhexidine (Hibiclens) 4 % external liquidIndicatio ns:Herpes dermatitis Apply topically if needed each day for wound care. 118 mL 03/14/20 23 Active ketoconazole (Nizoral) 2 % shampooIndicati ons:Seborrheic dermatitis Apply topically 2 (two) times a week. 120 mL 1 07/10/20 23 Active FREESTYLE LITE test stripIndication s:Type 2 diabetes mellitus with hyperglycemia, without long-term current use of insulin ([facility]) TEST BLOOD SUGAR THREE TIMES DAILY 100 strip 11 02/20/20 24 Active Alcohol Swabs (Alcohol Prep) 70 % pads TEST BLOOD SUGAR THREE TIMES DAILY 100 each 11 02/20/20 24 Active econazole nitrate 1 % creamIndication s:Seborrheic dermatitis Apply topically Once per day. 30 g 06/21/20 24 025 Active rosuvastatin (Crestor) 20 MG tabletIndicatio ns:Hypertriglyc eridemia Take 1 tablet (20 mg) by mouth Once per day. 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 90 tablet 11 09/29/20 24 025 Active Blood Glucose Monitoring Suppl ([employer] [place] Lite) w/Device kitIndications: Type 2 diabetes mellitus without complication, without long-term current use of insulin ([facility]) Use to test blood sugar 1 times daily 1 kit 09/29/20 24 Active Easy Touch Lancets 33G/Twist miscIndications :Type 2 diabetes mellitus without complication, without long-term current use of insulin ([facility]) TEST BLOOD SUGAR THREE TIMES DAILY 100 each 11 10/14/19 25 Active lisinopril-hydr oCHLOROthiazide 20-25 MG tabletIndicatio ns:Essential (primary) hypertension TAKE ONE TABLET EVERY MORNING 90 tablet 1 11/04/19 25 Active gabapentin (Neurontin) 100 MG capsuleIndicati ons:Paresthesia s Take 3 capsules (300 mg) by mouth every 8 (eight) hours. 270 capsule 11 11/08/19 25 026 Active cholecalciferol (Vitamin D3) 25 MCG (1000 UT) tablet Take by mouth in the morning. 11/08/19 25 Active Tirzepatide (Mounjaro) 5 MG/0.5ML solution auto-injector Inject 5 mg under the skin 1 (one) time per week. 2 mL 2 01/14/20 25 Active Descovy 200-25 MG tabletIndicatio ns:Encounter for HIV pre-exposure prophylaxis TAKE ONE TABLET EVERY MORNING 30 tablet 2 01/29/20 25 Active valACYclovir (Valtrex) 1 g tabletIndicatio ns:Herpes zoster without complication Take 1 tablet (1,000 mg) by mouth 2 times daily for 7 days. 14 tablet 02/08/20 25 025 Active dextran 70-hypromellose (artificial tears) 0.1-0.3 % ophthalmic solutionIndicat ions:Subconjunc tival hemorrhage of right eye Administer 1 drop into the right eye if needed in the morning, at noon, and at bedtime for dry eyes. 15 mL 02/08/20 25 026 Active ketoconazole (Nizoral) 2 % shampooIndicati ons:Balanitis Apply topically 2 (two) times a week. 120 mL 3 01/31/20 23 025 Discontinued(D uplicate order (will not trigger notification to Pharmacy)) dulaglutide (Trulicity) 4.5 MG/0.5ML solution pen-injectorInd ications:Type 2 diabetes mellitus without complication, without long-term current use of insulin ([facility]) Inject 4.5 mg under the skin 1 (one) time per week. 4 each 11 06/21/20 24 025 Discontinued(A lternate therapy) emtricitabine-t enofovir AF (Descovy) 200-25 MG tabletIndicatio ns:Encounter for HIV pre-exposure prophylaxis Take 1 tablet by mouth in the morning. 30 tablet 2 10/25/19 25 025 Discontinued Active Problems Problem Noted Date Diagnosed Date Obesity (BMI 30-39.9) 09/29/2024 Herpes zoster without complication 06/25/2024 Assessment & Plan (06/25/2024 1:36 PM EDT): Recurrent Shingles infection. -prescribed Valacyclovir. -advised supportive care. -isolation recommendations discussed. -ER and return precautions given. Swelling of left eyelid 11/17/2023 Assessment & Plan (11/17/2023 1:37 PM EST): Patient that presented visit with complaints of swelling of L eyelid will be provided with x7 days of antibiotic and eye drops to treat concern. Recommended to notify office if symptoms don't improve. Dx: Conjunctivitis / Blepharitis. Type 2 diabetes mellitus 12/25/2018 Assessment & Plan (11/17/2023 1:39 PM EST): Uncontrolled: A1C 8.1%. Advised to follow up with PCP pertaining to this concern. Hypertensive disorder 04/23/2018 Chronic low back pain 03/17/2018 Heel pain 03/17/2018 Asperger's disorder 08/21/2017 Depressive disorder 08/21/2017 Obstructive sleep apnea syndrome 08/21/2017 Encounters Date Type Department Care Team Description 02/10/2025 Travel 02/07/2025 11:00 AM EDT Office Visit [facility] [address] [place] [address] Yordy Banda MD Herpes zoster without complication (Primary Dx); Type 2 diabetes mellitus without complication, without long-term current use of insulin ([facility]); Subconjunctival hemorrhage of right eye; Obstructive sleep apnea syndrome; Dietary counseling; Exercise counseling; Class 2 severe obesity due to excess calories with serious comorbidity and body mass index (BMI) of 38.0 to 38.9 in adult (CMS/HCC) 02/07/2025 Travel 02/06/2025 Orders Only [facility] [address] [place] [address] Yordy Banda MD 02/03/2025 Travel 01/28/2025 Refill [facility] [address] [place] [address] Yordy Banda MD Encounter for HIV pre-exposure prophylaxis 01/26/2025 Telephone [facility] [address] [place] [address] Cherie Fung PharmD 01/13/2025 11:30 AM EDT Telemedicine [facility] [address] [place] [address] Cherie Fung, PharmKarina Type 2 diabetes mellitus without complication, without long-term current use of insulin ([facility]) (Primary Dx); On pre-exposure prophylaxis for HIV 01/13/2025 Travel 12/27/2024 Orders Only [facility] [address] [place] [address] ProviderPavel MD 12/23/2024 Telephone [facility] [address] [place] [address] Yordy Banda MD Appointment Request 12/22/2024 Travel 12/02/2024 Telephone [facility] [address] [place] [address] Yordy Banda MD Appointment Request from Last 3 Months Immunizations Name Administration Dates Next Due Influenza injectable quadriv alent IIV4 with preservative 07/10/2018 Influenza injectable quadriv alent preservative free 09/20/2021,07/26/2021,09/21/2020,2016 Pfizer Covid-19 Vaccine 12+ 09/29/2024 Pneumococcal Conjugate PCV 20 02/20/2023 Tdap 10/20/2017 Social History Tobacco Use Types Packs/Day Years Used Date Smoking Tobacco: Never Smokeless Tobacco: Never Tobacco Cessation:Counseling Given: No Alcohol Use Standard Drinks/Week Comments Never 0 [...] Orientation [place] 11/14/2022 9: 24 AM EST Last Filed Vital Signs Vital Sign Reading [...] Mass Index 38.92 02/07/2025 10:02 AM EDT Plan of Treatment Upcoming Encounters Date Type Department Care Team (Late st Contact Info) Description 02/21/2025 2:00 PM EDT Office Visit [facility] [address] [place] [address] Yordy Banda MD [address] [place] [address] 03/10/2025 9:00 AM EDT Telemedicine [facility] [address] [place] [address] Cherie Fung, PharmD [address] [place] [address] 05/12/2025 9:15 AM EDT Office Visit [facility] [address] [place] [address] Yordy Banda MD [address] [place] [address] Health Maintenance Due Date Last Done Comments Family Planning (PISQ) 1999 Hepatitis A Vaccines (1 of 2 - Risk 2-dose series) 2003 Hepatitis B Vaccines (1 of 3 - 19+ 3-dose series) 2003 Influenza Vaccine (#1) 2024 , 07/26/2021, 09/21/2020, Additional history exists Diabetes: Hemoglobin A1C 05/09/2025 025, 09/29/2024, 08/16/2024, Additional history exists Lipid Panel 06/21/2025 06/21/2024, 09/01/2020 Diabetes: Urine Protein Screening 08/20/2025 08/20/2024, 06/21/2024, 09/01/2020 Diabetes: Foot Exam 09/29/2025 09/29/2024, 07/10/2023, 07/10/2023, Additional history exists Alcohol/Substance Use Screening 11/08/2025 11/08/2024 Depression Screening 11/08/2025 11/08/2024, 02/28/20 23 SDOH Screening 11/08/2025 11/08/2024 Eye Exam 12/31/2025 01/01/2024, 12/12, 01/01/2024, Additional history exists Tobacco Screening 02/07/2026 02/07/2025 DTaP/Tdap/Td Vaccines (2 - Td or Tdap) 10/20/2027 10/20/2017 Zoster Vaccines (1 of 2) 2034 RSV Patients and Patients Aged 60 years or older (1 - 1-dose 75+ series) 2059 Pneumococcal Vaccine: Pediatrics (0 to 5 Years) and At-Risk Patients (6 to 49) Years) Completed 02/20/2023 COVID-19 Vaccine Completed 09/29/2024, 02/2022, 03/22/2021, Additional history exists HIV Screening Completed 10/21/2024, 06/21/2024 Hepatitis C Screening Completed 10/21/2024, 024 HIB Vaccines Aged Out No longer eligi ble based on patient's age to complete this topic HPV Vaccines Aged Out No longer eligi ble based on patient's age to complete this topic IPV Vaccines Aged Out No longer eligi ble based on patient's age to complete this topic Meningococcal Vaccine Aged Out No rupesh eloina eligible based on patient's age to complete this topic RSV under 20 months Aged Out No longe r eligible based on patient's age to complete this topic Rotavirus Vaccines Aged Out No longer eligible based on patient's age to complete this topic Goals Goal Patient Goal Type Associated Problems Recent Progress Patient-Stated? Author Hemoglobin A1c < 7 Result Component 8.4(02/07/2025 10:03 AM EDT) No Prasanna Pryor, [place] Procedures Procedure Name Priority Date/Time Associated Diagnosis Comments POCT GLUCOSE Routine 02/07/2025 10:03 AM EDT Type 2 diabetes mellitus without complication, without long-term current use of insulin ([facility]) POCT GLYCATED HEMOGLOBIN, TOTAL Routine 02/07/2025 10:03 AM EDT Type 2 diabetes mellitus without complication, without long-term current use of insulin ([facility]) ECG 12-LEAD Routine 12/27/2024 4:09 PM EDT HEPATITIS C ANTIBODY ([place] [facility]) Routine 10/21/2024 HIV ANTIBODY/ANTIGEN ([place] [facility]) Routine 10/21/2024 ALBUMIN/CREATININE RATIO, RANDOM URINE Routine 08/20/2024 3:33 PM EST LIPID PANEL, STANDARD Routine 06/21/2024 9:33 AM EDT Seborrheic dermatitis from Last 3 Months or Most Recently Relevant to Health Maintenance Results * (ABNORMAL) POCT A1C (02/07/2025 10:03 AM EDT) Hemoglobin A1C 8.4(A) 4.0 - 6.0 % QC Media Lot # Comment:[id number] Lot# Expiration Date Comment:08/31/2026 Blood 02/07/2025 10:0 3 AM EDT us Thevenin Beauzile MD POINT OF CARE TEST ENTER/ED IT ORDERABLES Final Result * (ABNORMAL) POCT glucose manually resulted (02/07/2025 10:03 AM EDT) [facility] Glucose Blood, POC 210(A) 60 - 200 mg/dL QC Media Lot # Comment:[id number] Lot# Expiration Date Comment:04/14/2025 Blood Capillary blood specimen / Unknown 02/07/2025 10:03 AM EDT Result [facility] Yordy Banda MD POINT OF CARE TEST ENTER/ED IT ORDERABLES Final Result * ECG 12 lead (12/27/2024 4:09 PM EDT) Result [facility] Provider ECG ORDERABLES Final Res ult * Hepatitis C Antibody ([facility]) (10/21/2024) [facility] Hepatitis C Ab Nonreactive Blood 10/21/2024 Result [facility] Provider LAB BLOOD ORDERABLES Ellie l Result * HIV Ab/Ag ([facility]) (10/21/2024) [facility] HIV Ag/Ab Nonreactive Blood 10/21/2024 Result [facility] Provider LAB BLOOD ORDERABLES Ellie l Result * Albumin/Creatinine Ratio, Random Urine (08/20/2024 3:33 PM EST) Urine (Urine, Random) Result [facility] Provider LAB URINE ORDERABLES Ellie l Result * (ABNORMAL) Lipid Panel, Standard (06/21/2024 9:33 AM EDT) [facility] Triglycerides 339(H) <150 mg/dL [facility] Comment:Desirable Triglyceri de: less than 150 mg/dLBorderline High Triglyceride 150-199 mg/dLHigh Triglyceride: 200-499 mg/dLVery High Triglyceride: greater than or equal to 5OO mg/dL Cholesterol 182 <200 mg/dL [facility] Comment:Desirable Cholestero l: less than 200 mg/dLBorderline High Cholesterol: 200-239 mg/dLHigh Cholesterol: greater than 239 mg/dL LDL Cholesterol Calculated 81 <100 mg/dL [facility] Comment:Desirable LDL: less than 100 mg/dLNear Optimal/Above Optimal LDL: 110- 129 mg/dLBorderline High LDL: 130-159 mg/dLHigh LDL: 160-189 mg/dLVery High LDL: greater than or equal to 190 mg/dL HDL Cholesterol 34(L) >40 mg/dL [facility] Comment:Desirable HDL: great er than 40 mg/dL Note: This HDL assay may give artificially low results in patients with liver disease. Blood Venous blood specimen / Unknown 06/21/2024 9:33 AM EDT 06/21/2024 2:26 PM EDT us Yordy Banda MD LAB BLOOD ORDERABLES Final Result [facility] [address] [place], [place] [phone] from Last 3 Months or Most Recently Relevant to Health Maintenance Insurance [facility] ONE CARE < 65 [place]ICK[place] [id number] Care Teams Engineering Mathematician Relationship Specialty Start Date End Date Yordy Banda MD [address] [place] [id number] PCP - General Internal Medicine 08/21/17 Cherie Fung PharmD [address] [place] [phone] Pharmacist Internal Medicine 11/09/24
--- OUTSIDE RECORDS SUMMARY | 2025-02-10 10:02 | XMS_ITS | Encounter Summary ---
Author Organization [employer] Address [address] [facility] 7 [place] [address] Care Team Providers Care Parasitologist Name Role Phone Yordy Banda MD Primary Care Provider [phone] Prasanna Pryor PharmD Unavailable Unavail able Cherie Fung PharmD Unavailable [phone] Encounter Details Date Type Department Care Team ([facility] st Contact Info) Description 11/13/2023 Orders Only [facility]S [address] [place], [place] [phone] Yordy Banda MD [address] [place] [address] Encounter for HIV pre-exposure prophylaxis (Primary Dx) Social History Tobacco Use Types Packs/Day Years Used Date Smoking Tobacco: Never Smokeless Tobacco: Never Alcohol Use Standard Drinks/Week Comments Never 0 (1 standard drink = 0.6 oz pur e alcohol) Depression Answer Date Recorded Patient Health Questionnaire-9 Score 0 02/27/2023 Housing Stability Answer Date Recorded What is your housing situation today? I have francisca steinberg 07/28/[address] you li ve. Do you have problems with any of the following? None of the above 07/28/2023 Food Insecurity Answer Date Recorded Within the past 12 months, y ou worried that your food would run out before you got money to buy more: Never True 07/28/2023 Within the past 12 months,th e food you bought just didn't last and you didn't have enough money to get more: Never True Transportation Answer Date Recorded In the past 12 months, has l ack of transportation kept you from medical appts, meetings, work or from getting things needed for daily living? No 07/28/2023 Utilities Answer Date Recorded In the past 12 months, has t he electric, gas, oil or water company threatened to shut off services in your home? No 07/28/2023 Depression Answer Date Recorded Patient Health Questionnaire-2 [...] Description 02/21/2025 2:00 PM EDT Office Visit [facility] [address] [place] [address] Yordy Banda MD [address] [place] [address] 03/10/2025 9:00 AM EDT Telemedicine [facility] [address] [place] [address] Cherie Fung PharmD [address] [place] [address] 05/12/2025 9:15 AM EDT Office Visit [facility] [address] [place] [address] Yordy Banda MD [address] [place] [address] documented as of this encounter Goals Goal Patient Goal Type Associated Problems Recent Progress Patient-Stated? Author Hemoglobin A1c < 7 Result Component 8.4(02/07/2025 10:03 AM EDT) No Prasanna Pryor, PharmD documented as of this encounter Visit Diagnoses Diagnosis Encounter for HIV pre-exposure prophylaxis- Primary documented in this encounter Additional Health Concerns Assessment Noted Time PHQ-9 Depression Total Score: 0 02/28/20 23 9:14 AM EDT documented as of this encounter Care Teams Parasitologist Relationship Specialty Start Date End Date Yordy Banda MD [address] [place] [address] PCP - General Internal Medicine 08/21/17 Prasanna Pryor, JoannD [address] [place] [address] Pharmacist Internal Medicine 02/10/23 11/09/24 Cherie Fung PharmD [address] [place] [phone] Pharmacist Internal Medicine 11/09/24 documented as of this encounter
--- OUTSIDE RECORDS SUMMARY | 2025-02-10 10:02 | XMS_ITS | Encounter Summary ---
Author Organization [employer] Address [address] [place] [address] 7 [place] [address] Care Team Providers Care Circus Agent Name Role Phone Yordy Banda MD Primary Care Provider [phone] Prasanna Pryor PharmD Unavailable Unavail able Cherie Fung PharmD Unavailable [phone] Reason for Referral * Imaging (Routine) - Closed Specialty Diagnoses / Procedures Referred By Contac t Referred To Contact Radiology Diagnoses Hypertriglyceridemia Transaminitis Procedures US Abdomen Complete Yordy Banda MD [address] [place] [address] Phone: tel: fax: [facility] [address] [place], [place] Phone: tel: fax: Referral ID Status Reason Start Date Expiration Date Visits Re quested Visits Authorized [id number] Closed 06/22/2024 06/22/2025 1 1 Encounter Details Date Type Department Care Team (Latest Contact Info) Description 06/22/2024 Orders Only [facility] [address] [place], [place] [phone] Yordy Banda MD [address] [place], [place] [phone] Hypertriglyceridemia (Primary Dx); Transaminitis Social History Tobacco Use Types Packs/Day Years [...] as of this encounter Miscellaneous Notes * Result Encounter Note - Yordy Banda MD - 06/22/2024 8:51 AM EDT Please call. US reviewed: hepatic steatosis with multiple Non specific hepatic lesions, largest measuring 2.8 x 2.4 x 2.9 cm. The radiologist further characterization with a dedicated MRI of the liver. documented in this encounter Plan of Treatment Upcoming Encounters Date Type Department Care Team ([facility] st Contact Info) Description 02/21/2025 2:00 PM EDT Office Visit [facility] [address] [place] [address] Yordy Banda MD [address] [place] [address] 03/10/2025 9:00 AM EDT Telemedicine [facility] [address] [place] [address] Cherie Fung PharmD [address] [place] [address] 05/12/2025 9:15 AM EDT Office Visit [facility] [address] [place] [address] Yordy Banda MD [address] [place] [address] documented as of this encounter Goals Goal Patient Goal Type Associated Problems Recent Progress Patient-Stated? Author Hemoglobin A1c < 7 Result Component 8.4(02/07/2025 10:03 AM EDT) No Prasanna Pryor, [place] documented as of this encounter Procedures Procedure Name Priority Date/Time Associated Diagnosis Comments US ABDOMEN COMPLETE Routine 07/27/2024 Hypertriglyceridemia Transaminitis documented in this encounter Results * US Abdomen Complete (07/27/2024) Anatomical Region Laterality Modality Abdomen Ultrasound us Yordy Banda MD IMG US PROCEDURES Final Res ult documented in this encounter Visit Diagnoses Diagnosis Hypertriglyceridemia- Primary Pure hyperglyceridemia Transaminitis Nonspecific elevation of levels of transaminase or lactic acid dehydrogenase (LDH) documented in this encounter Additional Health Concerns Assessment Noted Time PHQ-9 Depression Total Score: 0 02/28/20 9:14 AM EDT documented as of this encounter Care Teams Circus Agent Relationship Specialty Start Date End Date Yordy Banda MD [address] [place] [id number] PCP - General Internal Medicine 08/21/17 Prasanna Pryor, PharmD [address] [place] [address] Pharmacist Internal Medicine 02/10/23 11/09/24 Cherie Fung, [place] [address] [place] [address] Pharmacist Internal Medicine 11/09/24 documented as of this encounter
--- OUTSIDE RECORDS SUMMARY | 2025-02-10 10:02 | XMS_ITS | Encounter Summary ---
Author Organization [employer] Address 75 [facility] 7 [place] [address] Care Team Providers Care Community Health Planning Director Name Role Phone Yordy Banda MD Primary Care Provider [phone] Cherie Fung PharmD Unavailable [phone] Reason for Visit * Reason Onset Date Comments Appointment Request 12/02/2024 Encounter Details Date Type Department Care Team ([facility] st Contact Info) Description 12/02/2024 Telephone [facility] [address] [place] [address] Yordy Banda MD [address] [place] [address] Appointment Request Social History Tobacco Use Types Packs/Day Years [...] encounter Miscellaneous Notes * Telephone Encounter - Storm Samuel - 12/02/2024 8:31 AM EST TC from pt requesting to r/s Appt from 12/02/24. Contact pt at [phone] documented in this encounter Plan of Treatment Upcoming Encounters Date Type Department Care Team (Late st Contact Info) Description 02/21/2025 2:00 PM EDT Office Visit [facility] [address] [place] [address] Yordy Banda MD [address] [place] [address] 03/10/2025 9:00 AM EDT Telemedicine [facility] [address] [place] [address] Cherei Fung, PharmD [address] [place] [address] 05/12/2025 9:15 AM EDT Office Visit [facility] [address] [place] [address] Yordy Banda MD [address] [place] [address] documented as of this encounter Goals Goal Patient Goal Type Associated Problems Recent Progress Patient-Stated? Author Hemoglobin A1c < 7 Result Component 8.4(02/07/2025 10:03 AM EDT) No Prasanna Pryor, JoannD documented as of this encounter Visit Diagnoses Not on filedocumented in this encounter Additional Health Concerns Assessment Noted Time PHQ-9 Depression Total Score: 0 02/28/20 23 9:14 AM EDT documented as of this encounter Care Teams Community Health Planning Director Relationship Specialty Start Date End Date Yordy Banda MD [address] [place] [address] PCP - General Internal Medicine 08/21/17 Cherie Fung PharmD [address] [place] [address] Pharmacist Internal Medicine 11/09/24 documented as of this encounter
--- OUTSIDE RECORDS SUMMARY | 2025-02-10 10:02 | XMS_ITS | Encounter Summary ---
Author Organization [employer] Address 75 [facility] 7t [place] [address] Care Team Providers Care Engineering Faculty Member Name Role Phone Yordy Banda MD Primary Care Provider [phone] Prasanna Pryor PharmD Unavailable Unavail able Cherie Fung PharmD Unavailable [phone] Reason for Visit * Reason Onset Date Comments mri without contrast 08/02/2024 Encounter Details Date Type Department Care Team (Late st Contact Info) Description 08/02/2024 Telephone [facility] MEDICINE 230 [place] [address] Yordy Banda MD 505 [place] [address] mri without contrast Social History Tobacco Use Types Packs/Day Years [...] encounter Miscellaneous Notes * Telephone Encounter - Brice Sandoval - 08/02/2024 11:42 AM EDT [facility] Rad[facility] requested order for MRI abdominal without contrast. Any question contact [employer] documented in this encounter Plan of Treatment Upcoming Encounters Date Type Department Care Team (Late st Contact Info) Description 02/21/2025 2:00 PM EDT Office Visit [facility] 505 [place] [address] Yordy Banda MD 505 [place] [address] 03/10/2025 9:00 AM EDT Telemedicine [facility] 505 [place] [address] Cherie Fung, PharmD 230 [place] [address] 05/12/2025 9:15 AM EDT Office Visit [facility] 505 [place] [address] Yordy Banda MD 505 [place] [address] documented as of this encounter Goals Goal [...] documented as of this encounter Care Teams Engineering Faculty Member Relationship Specialty Start Date End Date Yordy Banda MD 505 [place] [address] PCP - General Internal Medicine 08/21/17 Prasanna Pryor, PharmD 505 [place] [address] Pharmacist Internal Medicine 02/10/23 11/09/24 Cherie Fung PharmD [address] [place] [address] Pharmacist Internal Medicine 11/09/24 documented as of this encounter
--- OUTSIDE RECORDS SUMMARY | 2025-02-10 10:02 | XMS_ITS | Encounter Summary ---
Author Organization [employer] Address 75 [facility] 7t [place] [address] Care Team Providers Care Skin Therapist Name Role Phone Yordy Banda MD Primary Care Provider [phone] Prasanna Pryor PharmD Unavailable Unavail able Cherie Fung PharmD Unavailable [phone] Reason for Visit * Reason Comments Med Refill Encounter Details Date Type Department Care Team ([facility] Contact Info) Description 07/13/2024 Refill [facility] MED & PEDS 505 [place], [place] [phone] Yordy Banda MD 505 [place] [address] Encounter for HIV pre-exposure prophylaxis Social History [...] 02/21/2025 2:00 PM EDT Office Visit [facility] MED [facility] PED[facility] 505 [place] [address] Yordy Banda MD 505 [place] [address] 03/10/2025 9:00 AM EDT Telemedicine [facility] 505 [place] [address] Cherie Fung PharmD 230 [place] [address] 05/12/2025 9:15 AM EDT Office Visit [facility] [address] [place] [address] Yordy Banda MD 505 [place] [address] documented as of this encounter Goals Goal [...] documented as of this encounter Care Teams Skin Therapist Relationship Specialty Start Date End Date Yordy Banda MD 505 [place] [address] PCP - General Internal Medicine 08/21/17 Prasanna Pryor PharmD 505 [place] [address] Pharmacist Internal Medicine 02/10/23 11/09/24 Cherie Fung PharmD [address] [place] [address] Pharmacist Internal Medicine 11/09/24 documented as of this encounter
--- OUTSIDE RECORDS SUMMARY | 2025-02-10 10:02 | XMS_ITS | Encounter Summary ---
Author Organization [employer] Address 75 [facility] 7 [place] [address] Care Team Providers Care Electric Welder Name Role Phone Yordy Banda MD Primary Care Provider [phone] Prasanna Pryor PharmD Unavailable Unavail able Cherie Fung PharmD Unavailable [phone] Encounter Details Date Type Department Care Team ([facility] st Contact Info) Description 07/08/2024 Orders Only [facility] MED & PEDS 505 [place], [place] [phone] Yordy Banda MD 505 [place] [address] Social History Tobacco Use Types Packs/Day Years [...] 2:00 PM EDT Office Visit [facility] MED & PEDS 505 [place] [address] Yordy Banda MD 505 [place] [address] 03/10/2025 9:00 AM EDT Telemedicine [facility] MED & PEDS 505 [place] [address] Cherie Fung PharmD 230 [place] [address] 05/12/2025 9:15 AM EDT Office Visit [facility] MED & PEDS [address] [place] [address] Yordy Banda MD 505 [place] [address] documented as of this encounter Goals Goal [...] documented as of this encounter Care Teams Electric Welder Relationship Specialty Start Date End Date Yordy Banda MD 505 [place] [address] PCP - General Internal Medicine 08/21/17 Prasanna Pryor, PharmD 505 [place] [address] Pharmacist Internal Medicine 02/10/23 11/09/24 Cherie Fung PharmD [address] [place] [address] Pharmacist Internal Medicine 11/09/24 documented as of this encounter
--- OUTSIDE RECORDS SUMMARY | 2025-02-10 10:02 | XMS_ITS | Encounter Summary ---
Author Organization [employer] Address 75 [facility] 7t [place] [address] Care Team Providers Care Business Test Analyst Name Role Phone Yordy Banda MD Primary Care Provider [phone] Cherie Fung PharmD Unavailable [phone] Encounter Details Date Type Department Care Team (Latest Contact Info) Description 02/07/2025 Travel Social History Tobacco Use Types Packs/Day [...] Office Visit [facility] MED [facility]EDS 505 [place] [address] Yordy Banda MD 505 [place] [address] 03/10/2025 9:00 AM EDT Telemedicine [facility] MED & PEDS 505 [place] [address] Cherie Fung, [place] [address] [place] [address] 05/12/2025 9:15 AM EDT Office Visit [facility] MED [facility] PEDS 505 [place] [address] Yordy Banda MD 505 [place] [address] documented as of this encounter Goals Goal [...] documented as of this encounter Care Teams Business Test Analyst Relationship Specialty Start Date End Date Yordy Banda MD 505 [place] [address] PCP - General Internal Medicine 08/21/17 Cherie Fung, PharmD 230 [place] [address] Pharmacist Internal Medicine 11/09/24 documented as of this encounter
--- OUTSIDE RECORDS SUMMARY | 2025-02-10 10:02 | XMS_ITS | Encounter Summary ---
Author Organization [employer] Address [address] [place] [address] 7 [place] [address] Care Team Providers Care Licensed Optical Dispenser Name Role Phone Yordy Banda MD Primary Care Provider [phone] Cherie Fung PharmD Unavailable [phone] Reason for Visit * Reason Onset Date Comments Appointment Request 12/23/2024 Encounter Details Date Type Department Care Team ([facility] st Contact Info) Description 12/23/2024 Telephone [facility] MED & PEDS 505 [place], [place] [phone] Yordy Banda MD 505 [place] [address] Appointment Request Social History Tobacco Use Types [...] encounter Miscellaneous Notes * Telephone Encounter - Gris Orosco - 12/23/2024 10:28 AM EDT Tc from pt requesting to cancel and r/s today's CDTM visit. Contact pt at [phone] documented in this encounter Plan of Treatment Upcoming Encounters Date Type Department Care Team (Late st Contact Info) Description 02/21/2025 2:00 PM EDT Office Visit [facility] MED & PEDS 505 [place] [address] Yordy Banda MD 505 [place] [address] 03/10/2025 9:00 AM EDT Telemedicine [facility] MED & PEDS 505 [place] [address] Cherie Fung, PharmD 230 [place], [place] [phone] 05/12/2025 9:15 AM EDT Office Visit [facility] MED & PEDS 505 [place] [address] Yordy Banda MD 505 [place], [place] documented as of this encounter Goals Goal [...] documented as of this encounter Care Teams Licensed Optical Dispenser Relationship Specialty Start Date End Date Yordy Banda MD [address] [place] [address] PCP - General Internal Medicine 08/21/17 Cherie Fung PharmD [address] [place] [address] Pharmacist Internal Medicine 11/09/24 documented as of this encounter
--- OUTSIDE RECORDS SUMMARY | 2025-02-10 10:02 | XMS_ITS | Encounter Summary ---
Author Organization [employer] Address 75 [facility] 7t [place] [address] Care Team Providers Care Lion Tamer Name Role Phone Yordy Banda MD Primary Care Provider [phone] Cherie Fung PharmD Unavailable [phone] Encounter Details Date Type Department Care Team (Late st Contact Info) Description 12/27/2024 Orders Only [facility] 230 [place], [place] [phone] ProviderPavel MD Social History Tobacco Use Types Packs/Day Years [...] 2:00 PM EDT Office Visit [facility] MED & PEDS 505 [place] [address] Yordy Banda MD 505 [place] [address] 03/10/2025 9:00 AM EDT Telemedicine [facility] MED & PEDS 505 [place] [address] Cherie Fung PharmD 230 [place] [address] 05/12/2025 9:15 AM EDT Office Visit [facility] MED & PEDS 505 [place] [address] Yordy Banda MD 505 [place] [address] documented as of this encounter Goals Goal Patient Goal Type Associated Problems Recent Progress Patient-Stated? Author Hemoglobin A1c < 7 Result Component 8.4(02/07/2025 10:03 AM EDT) No Prasanna Pryor, PharmD documented as of this encounter Procedures Procedure Name Priority Date/Time Associated Diagnosis Comments ECG 12-LEAD Routine 12/27/2024 4:09 PM EDT documented in this encounter Results * ECG 12 lead (12/27/2024 4:09 PM EDT) us Historical Provider ECG ORDERABLES Final Res ult documented in this encounter Visit Diagnoses Not on filedocumented in this encounter Additional Health Concerns Assessment Noted Time PHQ-9 Depression Total Score: 0 02/28/20 23 9:14 AM EDT documented as of this encounter Care Teams Lion Tamer Relationship Specialty Start Date End Date Yordy Banda MD 505 [place] [address] PCP - General Internal Medicine 08/21/17 Cherie Fung PharmD [address] [place] [address] Pharmacist Internal Medicine 11/09/24 documented as of this encounter
--- OUTSIDE RECORDS SUMMARY | 2025-02-10 10:02 | XMS_ITS | Encounter Summary ---
Author Organization [employer] Address [address] [place] [address] [facility] [place] [address] Care Team Providers Care Garde Manger Name Role Phone Yordy Banda MD Primary Care Provider [phone] Prasanna Pryor PharmD Unavailable Unavail able Cherie Fung PharmD Unavailable [phone] Reason for Visit * Reason Comments Med Refill Encounter Details Date Type Department Care Team ([facility] Contact Info) Description 11/05/2022 Refill [facility] MEDICINE 230 [place], [place] [phone] Yordy Banda MD 505 [place] [address] Type 2 diabetes mellitus with hyperglycemia, without long-term current use of insulin ([facility]) (Primary Dx) Social History Tobacco Use Types Packs/Day Years Used Date Smoking Tobacco: Never Assessed Sex and Gender Information Value Date Recorded Sex Assigned at Male 08/12/2022 10:32 AM EDT Legal Sex Male 10:32 AM EDT Gender Identity Male 08/12/2022 10:32 AM EDT Sexual Orientation [place] 11/14/2022 9: 24 AM EST documented as of this encounter Plan of Treatment Upcoming Encounters Date Type Department Care Team ([facility] Contact Info) Description 02/21/2025 2:00 PM EDT Office Visit [facility] CHC MED & PEDS 505 [place], [place] [phone] Yordy Banda MD 505 [place] [address] 03/10/2025 9:00 AM EDT Telemedicine [facility] MED & PEDS 505 [place] [address] Cherie Fung, [place] 230 [place] [address] 05/12/2025 9:15 AM EDT Office Visit [facility] MED & PEDS 505 [place] [address] Yordy Banda MD 505 [place] [address] documented as of this encounter Visit Diagnoses Diagnosis Type 2 diabetes mellitus with hyperglycemia, without long-term current use of insulin ([facility])- Primary documented in this encounter Care Teams Garde Manger Relationship Specialty Start Date End Date Yordy Banda MD [address] [place] [address] PCP - General Internal Medicine 08/21/17 Prasanna Pryor PharmD [address] [place] [address] Pharmacist Internal Medicine 02/10/23 11/09/24 Cherie Fung, PharmD 230 [place] [address] Pharmacist Internal Medicine 11/09/24 documented as of this encounter
--- OUTSIDE RECORDS SUMMARY | 2025-02-10 10:02 | XMS_ITS | Encounter Summary ---
Author Organization [employer] Address 75 [facility] 7t [place] [address] Care Team Providers Care Belt And Link Assembly Supervisor Name Role Phone Yordy Banda MD Primary Care Provider [phone] Prasanna Pryor PharmD Unavailable Unavail able Cherie Fung PharmD Unavailable [phone] Encounter Details Date Type Department Care Team (Late st Contact Info) Description 08/24/2024 Orders Only [facility] 230 [place] [address] Provider, MD Pavel Social History Tobacco Use Types Packs/Day Years [...] Description 02/21/2025 2:00 PM EDT Office Visit [facility] MED & PEDS 505 [place] [address] Yordy Banda MD 505 [place] [address] 03/10/2025 9:00 AM EDT Telemedicine [facility] MED & PEDS 505 [place] [address] Cherie Fung PharmD [address] [place] [address] 05/12/2025 9:15 AM EDT Office Visit [facility] MED [facility] PEDS 505 [place] [address] Yoryd Banda MD 505 [place] [address] documented as of this encounter Goals Goal Patient Goal Type Associated Problems Recent Progress Patient-Stated? Author Hemoglobin A1c < 7 Result Component 8.4(02/07/2025 10:03 AM EDT) No Prasanna Pryor, PharmD documented as of this encounter Procedures Procedure Name Priority Date/Time Associated Diagnosis Comments ALBUMIN/CREATININE RATIO, RANDOM URINE Routine 08/20/2024 3:33 PM EST documented in this encounter Results * Albumin/Creatinine Ratio, Random Urine (08/20/2024 3:33 PM EST) Urine (Urine, Random) us Historical Provider LAB URINE ORDERABLES Ellie l Result documented in this encounter Visit Diagnoses Not on filedocumented in this encounter Additional Health Concerns Assessment Noted Time PHQ-9 Depression Total Score: 0 02/28/20 9:14 AM EDT documented as of this encounter Care Teams Belt And Link Assembly Supervisor Relationship Specialty Start Date End Date Yordy Banda MD 505 [place] [address] PCP - General Internal Medicine 08/21/17 Prasanna Pryor PharmD 505 [place] [address] Pharmacist Internal Medicine 02/10/23 11/09/24 Cherie Fung PharmD 230 [place] [address] Pharmacist Internal Medicine 11/09/24 documented as of this encounter
--- OUTSIDE RECORDS SUMMARY | 2025-02-10 10:02 | XMS_ITS | Encounter Summary ---
Author Organization [employer] Address [address] [facility] 7t [place] [address] Care Team Providers Care Trade Show Manager Name Role Phone Yordy Banda MD Primary Care Provider [phone] Prasanna Pryor PharmD Unavailable Unavail able Cherie Fung PharmD Unavailable [phone] Encounter Details Date Type Department Care Team ([facility] st Contact Info) Description 08/27/2024 Orders Only [facility] CHC MED & PEDS [address] [place], [place] [phone] Provider, MD Pavel Social History Tobacco Use [...] 2:00 PM EDT Office Visit [facility] MED & PEDS 505 [place] [address] Yordy Banda MD 505 [place] [address] 03/10/2025 9:00 AM EDT Telemedicine [facility] MED & PEDS [address] [place] [address] Cherie Fung PharmD [address] [place] [address] 05/12/2025 9:15 AM EDT Office Visit [facility] MED & PEDS [address] [place] [address] Yordy Banda MD 505 [place] [address] documented as of this encounter Goals Goal Patient Goal Type Associated Problems Recent Progress Patient-Stated? Author Hemoglobin A1c < 7 Result Component 8.4(02/07/2025 10:03 AM EDT) No Prasanna Pryor, PharmD documented as of this encounter Procedures Procedure Name Priority Date/Time Associated Diagnosis Comments HEMOGLOBIN A1C Routine 08/16/2024 9:10 AM EST documented in this encounter Results * Hemoglobin A1c (08/16/2024 9:10 AM EST) Blood Venous blood specimen / Unknown us Historical Provider LAB BLOOD ORDERABLES Ellie l Result documented in this encounter Visit Diagnoses Not on filedocumented in this encounter Additional Health Concerns Assessment Noted Time PHQ-9 Depression Total Score: 0 02/28/20 9:14 AM EDT documented as of this encounter Care Teams Trade Show Manager Relationship Specialty Start Date End Date Yordy Banda MD 505 [place] [address] PCP - General Internal Medicine 08/21/17 Prasanna Pryor, PharmD 505 [place] [address] Pharmacist Internal Medicine 02/10/23 11/09/24 Cherie Fung PharmD 230 [place] [address] Pharmacist Internal Medicine 11/09/24 documented as of this encounter
[2025-02-10 14:35] LABS: Cholesterol 173 mg/dL (<200); HDL Cholesterol 29 mg/dL (>40); LDL Cholesterol Calculated 69 mg/dL (<100); Triglycerides 378 mg/dL (<150)
[2025-02-10 14:39] LABS: Estimated Average Glucose 183 mg/dL; Hemoglobin A1C 246.5619 umol/L; Total Hemoglobin (HGBA1C) 3828.6111 umol/L
[2025-02-10 15:00] LABS: HBS Num1 3.96 mIU/mL (0-7.99); HBc Num1 0.12 S/CO (0.00-0.79); HBsAGNum1 0.37 S/CO (0.00-0.99); HIV AB/AG Nonreactive (Nonreactive); HIV Num 1 0.08 S/CO (0.00-0.99); Hepatitis B Core Antibody Nonreactive (Nonreactive); Hepatitis B Surface Antigen Negative (Negative); ~Hepatitis B Surface Antibody NONREACTIVE (Nonreactive)
[2025-02-10 15:04] LABS: Syphilis Screen Nonreactive (Nonreactive)
[2025-02-11 16:03] LABS: HIV RNA PCR Qn Copies NOT DETECTED copies/mL (NOT DETECTED); HIV RNA PCR Qn Log Copies NOT DETECTED (NOT DETECTED)
[2025-02-14 11:48] LABS: RPR Rapid Plasma Reagin NON-REACTIVE (NON-REACTIVE)
== END 2025-02-10 09:16 | disposition home or self-care (01) ==
LOC: HO.CHCLDS 09:15
PROVIDERS: Visit Provider Internal Medicine
DX: E11.9 Type 2 diabetes mellitus without complications (principal); Z79.899 Other long term (current) drug therapy
CPT/HCPCS: 36415; 80061; 83036; 86592; 86704; 86706; 86780; 87340; 87389; 87536

== ENCOUNTER 2025-02-11 13:50 | Outpatient (REF) | payer OTHER, SELFPAY ==
--- OUTSIDE RECORDS SUMMARY | 2025-02-11 14:09 | XMS_ITS | Encounter Summary ---
Author Organization [employer] Address 75 [facility] 7 [place] [address] Care Team Providers Care Boring Machine Set Up Operator Jig Name Role Phone Yordy Banda MD Primary Care Provider [phone] Prasanna Pryor PharmD Unavailable Unavail able Cherie Fung PharmD Unavailable [phone] Reason for Visit * Reason Onset Date Comments Results 07/30/2024 Encounter Details Date Type Department Care Team ([facility] st Contact Info) Description 07/30/2024 Telephone [facility] MEDICINE 230 [place] [address] Yordy Banda MD 505 [place] [address] Results Social History Tobacco Use Types Packs/Day [...] [facility] 505 [place] [address] Yordy Banda MD [address] [place] [address] 03/10/2025 9:00 AM EDT Telemedicine [facility] 505 [place] [address] Cherie Fung, PharmD 230 [place] [address] 05/12/2025 9:15 AM EDT Office Visit [facility] 505 [place] [address] Yordy Banda MD 505 [place] [address] documented as of this encounter Goals Goal Patient Goal Type Associated Problems Recent Progress Patient-Stated? Author Hemoglobin A1c < 7 Result Component 8(02/10/2025 9:19 AM EDT) No Prasanna Pryor, PharmD documented as of this encounter Visit Diagnoses Not on filedocumented in this encounter Additional Health Concerns Assessment Noted Time PHQ-9 Depression Total Score: 0 02/28/20 9:14 AM EDT documented as of this encounter Care Teams Boring Machine Set Up Operator Jig Relationship Specialty Start Date End Date Yordy Banda MD 505 [place] [address] PCP - General Internal Medicine 08/21/17 Prasanna Pryor, PharmD 505 [place] [address] Pharmacist Internal Medicine 02/10/23 11/09/24 Cherie Fung, JoannD 230 [place] [address] Pharmacist Internal Medicine 11/09/24 documented as of this encounter
--- OUTSIDE RECORDS SUMMARY | 2025-02-11 14:09 | XMS_ITS | Encounter Summary ---
Author Organization [employer] Address 75 [facility] 7 [place] [address] Care Team Providers Care Aquatics Instructor Name Role Phone Yordy Banda MD Primary Care Provider [phone] Cherie Fung PharmD Unavailable [phone] Encounter Details Date Type Department Care Team ([facility] Contact Info) Description 02/11/2025 Telephone [facility] CHC MED & PEDS 505 [place], [place] [phone] Yordy Banda MD 505 [place] [address] Social History Tobacco Use Types Packs/Day Years [...] Upcoming Encounters Date Type Department Care Team ([facility] st Contact Info) Description 02/21/2025 2:00 PM EDT Office Visit [facility] MED & PEDS 505 [place] [address] Yordy Banda MD 505 [place] [address] 03/10/2025 9:00 AM EDT Telemedicine [facility] MED & PEDS 505 [place] [address] Cherie Fung PharmD [address] [place] [address] 05/12/2025 9:15 AM EDT Office Visit [facility] MED & PEDS [address] [place] [address] Yordy Banda MD 505 [place] [address] documented as of this encounter Goals Goal Patient Goal Type Associated Problems Recent Progress Patient-Stated? Author Hemoglobin A1c < 7 Result Component 8(02/10/2025 9:19 AM EDT) No Prasanna Pryor, PharmD documented as of this encounter Visit Diagnoses Diagnosis Hypertriglyceridemia Pure hyperglyceridemia documented in this encounter Additional Health Concerns Assessment Noted Time PHQ-9 Depression Total Score: 0 02/28/20 9:14 AM EDT documented as of this encounter Care Teams Aquatics Instructor Relationship Specialty Start Date End Date Yordy Banda MD 505 [place] [address] PCP - General Internal Medicine 08/21/17 Cherie Fung, JoannD 230 [place] [address] Pharmacist Internal Medicine 11/09/24 documented as of this encounter
--- OUTSIDE RECORDS SUMMARY | 2025-02-11 14:09 | XMS_ITS | Encounter Summary ---
Author Organization [employer] Address 75 [facility] 7t [place] [address] Care Team Providers Care City Magistrate Name Role Phone Yordy Banda MD Primary Care Provider [phone] Cherie Fung PharmD Unavailable [phone] Encounter Details Date Type Department Care Team [...] 02/21/2025 2:00 PM EDT Office Visit [facility] MED [facility] PED[facility] [address] [place] [address] Yordy Banda MD 505 [place] [address] 03/10/2025 9:00 AM EDT Telemedicine [facility] [address] [place] [address] Cherie Fung, [place] [address] [place] [address] 05/12/2025 9:15 AM EDT Office Visit [facility] [address] [place] [address] Yordy Banda MD 505 [place] [address] documented as of this encounter Goals Goal [...] documented as of this encounter Care Teams City Magistrate Relationship Specialty Start Date End Date Yordy Banda MD 505 [place] [address] PCP - General Internal Medicine 08/21/17 FungCherie PharmD 230 [place] [address] Pharmacist Internal Medicine 11/09/24 documented as of this encounter
--- OUTSIDE RECORDS SUMMARY | 2025-02-11 14:09 | XMS_ITS | Encounter Summary ---
Author Organization [employer] Address 75 [facility] 7 [place] [address] Care Team Providers Care Crm Consultant Name Role Phone Yordy Banda MD Primary Care Provider [phone] Prasanna Pryor PharmD Unavailable Unavail able Cherie Fung PharmD Unavailable [phone] Encounter Details Date Type Department Care Team ([facility] st Contact Info) Description 07/08/2024 Orders Only [facility] CHC MED & PEDS [address] [place], [place] [phone] Yordy Banda MD 505 [place] [address] Social History Tobacco Use Types Packs/Day Years [...] [facility] 505 [place] [address] Yordy Banda MD [address] [place] [address] 03/10/2025 9:00 AM EDT Telemedicine [facility] MED & PEDS 505 [place] [address] Cherie Fung PharmD 230 [place] [address] 05/12/2025 9:15 AM EDT Office Visit [facility] MED & PEDS [address] [place] [address] Yordy Banda MD [address] [place] [address] documented as of this encounter Goals Goal [...] documented as of this encounter Care Teams Crm Consultant Relationship Specialty Start Date End Date Yordy Banda MD 505 [place] [address] PCP - General Internal Medicine 08/21/17 Prasanna Pryor, PharmD 505 [place] [address] Pharmacist Internal Medicine 02/10/23 11/09/24 Cherie Fung PharmD [address] [place] [address] Pharmacist Internal Medicine 11/09/24 documented as of this encounter
--- OUTSIDE RECORDS SUMMARY | 2025-02-11 14:09 | XMS_ITS | Encounter Summary ---
Author Organization [employer] Address 75 [facility] 7 [place] [address] Care Team Providers Care Blood Bank Specialist Name Role Phone Yordy Banda MD Primary Care Provider [phone] Prasanna Pryor PharmD Unavailable Unavail able Cherie Fung PharmD Unavailable [phone] Encounter Details Date Type Department Care Team ([facility] st Contact Info) Description 10/25/2024 Orders Only [facility] CHC MED & PEDS [address] [place], [place] [phone] Yordy Banda MD 505 [place] [address] Encounter for HIV pre-exposure prophylaxis Social History [...] Description 02/21/2025 2:00 PM EDT Office Visit [facility] MED & PEDS [address] [place] [address] Yordy Banda MD [address] [place] [address] 03/10/2025 9:00 AM EDT Telemedicine [facility] MED & PEDS [address] [place] [address] Cherie Fung PharmD 230 [place] [address] 05/12/2025 9:15 AM EDT Office Visit [facility] MED & PEDS [address] [place] [address] Yordy Banda MD 505 [place] [address] documented as of this encounter Goals Goal [...] documented as of this encounter Care Teams Blood Bank Specialist Relationship Specialty Start Date End Date Yordy Banda MD 505 [place] [address] PCP - General Internal Medicine 08/21/17 Prasanna Pryor, PharmD 505 [place] [address] Pharmacist Internal Medicine 02/10/23 11/09/24 Cherie Fung, JoannD [address] [place] [address] Pharmacist Internal Medicine 11/09/24 documented as of this encounter
--- OUTSIDE RECORDS SUMMARY | 2025-02-11 14:09 | XMS_ITS | Encounter Summary ---
Author Organization [employer] Address 75 [facility] 7t [place] [address] Care Team Providers Care Special Projects Coordinator Name Role Phone Yordy Banda MD Primary Care Provider [phone] Prasanna Pryor PharmD Unavailable Unavail able Cherie Fung PharmD Unavailable [phone] Encounter Details Date Type Department Care Team ([facility] st Contact Info) Description 08/27/2024 Orders Only [facility] CHC MED & PEDS [address] [place], [place] [phone] Provider, MD Pavel Social History Tobacco Use [...] [facility] 505 [place] [address] Yordy Banda MD 505 [place] [address] 03/10/2025 9:00 AM EDT Telemedicine [facility] MED & PEDS [address] [place] [address] Cherie Fung PharmD [address] [place] [address] 05/12/2025 9:15 AM EDT Office Visit [facility] MED & PEDS 505 [place] [address] Yordy Banda MD 505 [place] [address] documented as of this encounter Goals Goal [...] documented as of this encounter Care Teams Special Projects Coordinator Relationship Specialty Start Date End Date Yordy Banda MD 505 [place] [address] PCP - General Internal Medicine 08/21/17 Prasanna Pryor PharmD 505 [place] [address] Pharmacist Internal Medicine 02/10/23 11/09/24 Cherie Fung PharmD 230 [place] [address] Pharmacist Internal Medicine 11/09/24 documented as of this encounter
--- OUTSIDE RECORDS SUMMARY | 2025-02-11 14:09 | XMS_ITS | Encounter Summary ---
Author Organization [employer] Address [address] [place] [address] [address] [place] [address] Care Team Providers Care Recruitment Manager Name Role Phone Yordy Banda MD Primary Care Provider [phone] Prasanna Pryor PharmD Unavailable Unavail able Cherie Fung PharmD Unavailable [phone] Reason for Visit * Reason Comments Med Refill Encounter Details Date Type Department Care Team ([facility] Contact Info) Description 11/05/2022 Refill [facility] MEDICINE [address] [place], [place] [phone] Yordy Banda MD 505 [place] [address] Type 2 diabetes mellitus with hyperglycemia, without long-term current use of insulin ([facility]) (Primary Dx) Social History Tobacco Use Types [...] Upcoming Encounters Date Type Department Care Team ([facility] Contact Info) Description 02/21/2025 2:00 PM EDT Office Visit [facility] CHC MED & PEDS [address] [place], [place] [phone] Yordy Banda MD 505 [place] [address] 03/10/2025 9:00 AM EDT Telemedicine [facility] MED & PEDS 505 [place] [address] Cherie Fung, [place] 230 [place] [address] 05/12/2025 9:15 AM EDT Office Visit [facility] MED & PEDS 505 [place] [address] Yordy Banda MD 505 [place] [address] documented as of this encounter Visit Diagnoses Diagnosis Type 2 diabetes mellitus with hyperglycemia, without long-term current use of insulin ([facility])- Primary documented in this encounter Care Teams Recruitment Manager Relationship Specialty Start Date End Date Yordy Banda MD [address] [place] [address] PCP - General Internal Medicine 08/21/17 Prasanna Pryor PharmD [address] [place] [address] Pharmacist Internal Medicine 02/10/23 11/09/24 Cherie Fung, PharmD [address] [place] [address] Pharmacist Internal Medicine 11/09/24 documented as of this encounter
--- OUTSIDE RECORDS SUMMARY | 2025-02-11 14:09 | XMS_ITS | Encounter Summary ---
Author Organization [employer] Address [address] [place] [address] 7 [place] [address] Care Team Providers Care Garment Patternmaker Name Role Phone Yordy Banda MD Primary Care Provider [phone] Cherie Fung PharmD Unavailable [phone] Reason for Visit * Reason Onset Date Comments Results 02/11/2025 Encounter Details Date Type Department Care Team ([facility] Contact Info) Description 02/11/2025 Telephone [facility] CHC MED & PEDS 505 [place], [place] [phone] Yordy Banda MD 505 [place] [address] Results Social History Tobacco Use Types Packs/Day [...] encounter Miscellaneous Notes * Telephone Encounter - Kierra Colindres RN - 02/11/2025 1:16 PM EDT TC to pt. No answer. Voicemail left by deputy bailiff. ----- Message from Yordy Banda MD sent at 02/11/2025 11:01 AM EDT ----- Please call. Mr. Rudolph Rutledge has elevated triglyceride level on rosuvastatin 20 mg once a day. If he is compliant to his medication I will need to increase the dose to 40 mg daily and I recommend repeating the cholesterol level in 6 weeks to assess improvement. He is to continue with avoidance of refined sugar and to be as active as tolerated. His goal should be to exercise 150 minutes a week. ----- Message ----- From: Interface, Lab Results In Sent: 02/10/2025 2:36 PM EDT To: Yordy Banda MD documented in this encounter Plan of Treatment Upcoming Encounters Date Type Department Care Team (Late st Contact Info) Description 02/21/2025 2:00 PM EDT Office Visit [facility] MED & PEDS [address] [place] [address] Yordy Banda MD 505 [place] [address] 03/10/2025 9:00 AM EDT Telemedicine [facility] MED & PEDS 505 [place] [address] Cherie Fung PharmD 230 [place] [address] 05/12/2025 9:15 AM EDT Office Visit [facility] MED & PEDS 505 [place] [address] Yordy Banda MD 505 [place] [address] documented as of this encounter Goals Goal Patient Goal Type Associated Problems Recent Progress Patient-Stated? Author Hemoglobin A1c < 7 Result Component 8(02/10/2025 9:19 AM EDT) No Prasanna Pryor PharmD documented as of this encounter Visit Diagnoses Not on filedocumented in this encounter Additional Health Concerns Assessment Noted Time PHQ-9 Depression Total Score: 0 02/28/20 23 9:14 AM EDT documented as of this encounter Care Teams Garment Patternmaker Relationship Specialty Start Date End Date Yordy Banda MD [address] [place] [address] PCP - General Internal Medicine 08/21/17 Cherie Fung PharmD [address] [place] [address] Pharmacist Internal Medicine 11/09/24 documented as of this encounter
--- OUTSIDE RECORDS SUMMARY | 2025-02-11 14:09 | XMS_ITS | Encounter Summary ---
Author Organization [employer] Address 75 [facility] 7 [place] [address] Care Team Providers Care Application Performance Engineer Name Role Phone Yordy Banda MD Primary Care Provider [phone] Cherie Fung PharmD Unavailable [phone] Encounter Details Date Type Department Care Team ([facility] st Contact Info) Description 02/10/2025 Orders Only [facility] CHC MED & PEDS [address] [place], [place] [phone] Yordy Banda MD 505 [place] [address] Social History Tobacco Use Types Packs/Day Years [...] Upcoming Encounters Date Type Department Care Team ([facility] st Contact Info) Description 02/21/2025 2:00 PM EDT Office Visit [facility] MED & PEDS 505 [place] [address] Yordy Banda MD [address] [place] [address] 03/10/2025 9:00 AM EDT Telemedicine [facility] MED & PEDS 505 [place] [address] Cherie Fung PharmD [address] [place] [address] 05/12/2025 9:15 AM EDT Office Visit [facility] MED & PEDS [address] [place] [address] Yordy Banda MD [address] [place] [address] documented as of this encounter Goals Goal Patient Goal Type Associated Problems Recent Progress Patient-Stated? Author Hemoglobin A1c < 7 Result Component 8(02/10/2025 9:19 AM EDT) No Prasanna Pryor, PharmD documented as of this encounter Procedures Procedure Name Priority Date/Time Associated Diagnosis Comments SYPHILIS SCREEN Routine 02/10/2025 9:19 AM EDT HEPATITIS B SURFACE ANTIGEN, EIA Routine 02/10/2025 9:19 AM EDT HEPATITIS B CORE AB TOTAL Routine 02/10/2025 9:19 AM EDT HIV 1/2 ANTIGEN/ANTIBODY, FOURTH GENERATION W/RFL Routine 02/10/2025 9:19 AM EDT HEPATITIS B SURFACE ANTIBODY, QUALITATIVE Routine 02/10/2025 9:19 AM EDT HEMOGLOBIN A1C Routine 02/10/2025 9:19 AM EDT LIPID PANEL, STANDARD Routine 02/10/2025 9:19 AM EDT documented in this encounter Results * Syphilis Screen (02/10/2025 9:19 AM EDT) Syphilis Screen Nonreactive Nonreactive [facility] 02/10/2025 9:19 AM EDT 02/10/2025 2:12 PM EDT us Yordy Banda MD LAB BLOOD ORDERABLES Final Result Performing Organization Address [facility] Co de Phone Number [facility] [address] [place] [phone] * Hepatitis B surface antigen, EIA (02/10/2025 9:19 AM EDT) Hepatitis B Surface Ag Negative Negative [facility] 02/10/2025 9:19 AM EDT 02/10/2025 2:12 PM EDT Yordy Banda MD LAB BLOOD ORDERABLES Final Result Performing Organization Address [facility] Co de Phone Number [facility] [address] [place] [phone] * HIV-1/2 Antigen and Antibodies, Fourth Generation, with Reflexes (02/10/2025 9:19 AM EDT) [facility] HIV AB/AG Nonreactive Nonreactive [facility] Comment:HIV-1 p24 Ag and/or HIV-1/HIV-2 Ab not detected.A test result that is nonreactive does not exclude thepossibility of exposure to or infection with HIV-1 and/orHIV-2. Nonreactive results in this assay for individualswith prior exposure to HIV-1 and/or HIV-2 may be due toantigen and antibody levels that are below the limit ofdetection of this assay.The [employer] HIV Ag/Ab Combo assay result andsupplemental assay results should be interpreted inconjunction with the patient's clinical presentation,history and other laboratory results. If the results areinconsistent with clinical evidence, additional testing issuggested to confirm the result. 02/10/2025 9:19 AM EDT 02/10/2025 2:12 PM EDT us Yordy Banda MD LAB BLOOD ORDERABLES Final Result Performing Organization Address [facility]/ZIP Co de Phone Number [facility] [address] [place] [phone] * Hepatitis B Core Antibody, Total (02/10/2025 9:19 AM EDT) [facility] Hepatitis B Core Antibody Nonreactive Nonreactive [facility] 02/10/2025 9:19 AM EDT 02/10/2025 2:12 PM EDT Yordy Banda MD LAB BLOOD ORDERABLES Final Result Performing Organization Address [facility] Co de Phone Number [facility] [address] [place] [phone] * Hepatitis B Surface Antibody, Qualitative (02/10/2025 9:19 AM EDT) [facility] ~Hepatitis B Surface Antibody NONREACTIVE Nonreactive [facility] Comment:Nonreactive: < 8.00 mIU/mL 02/10/2025 9:19 AM EDT 02/10/2025 2:12 PM EDT us Yordy Banda MD LAB BLOOD ORDERABLES Final Result Performing Organization Address [facility] Co de Phone Number [facility] [address] [place] [phone] * (ABNORMAL) Hemoglobin A1c (02/10/2025 9:19 AM EDT) Hemoglobin A1c 8.0(H) <6.0 % [facility] Comment:Hemoglobin A1C Refer ence Range Adults: 4.8 - 6.0 % Non diabetic: < 6.0 % Goal: < 7.0 %Additional Action Suggested: > 8.0 %Note: Hemoglobin A1c results are invalid for patients with abnormal amounts of HbF. Blood transfusions may impact the HbA1c concentration in the patient sample. Estimated Average Glucose 183 mg/dL [facility] Comment:eAG = Estimated ave rage glucose which is %A1C expressed asaverage glucose, using the formula of the G3R-GhgsajnKvodjlb Glucose study (ADAG), Diabetes Care, Vol.31,#8,2007 02/10/2025 9:19 AM EDT 02/10/2025 2:12 PM EDT us Yordy Banda MD LAB BLOOD ORDERABLES Final Result Performing Organization Address [facility] de Phone Number [facility] [address] [place] [phone] * (ABNORMAL) Lipid Panel, Standard (02/10/2025 9:19 AM EDT) Triglycerides 378(H) <150 mg/dL [facility] Comment:Slight Lipemia.Jacinta able Triglyceride: less than 150 mg/dLBorderline High Triglyceride 150-199 mg/dLHigh Triglyceride: 200-499 mg/dLVery High Triglyceride: greater than or equal to 5OO mg/dL Cholesterol 173 <200 mg/dL [facility] Comment:Desirable Cholestero l: less than 200 mg/dLBorderline High Cholesterol: 200-239 mg/dLHigh Cholesterol: greater than 239 mg/dL LDL Cholesterol Calculated 69 <100 mg/dL [facility] Comment:Desirable LDL: less than 100 mg/dLNear Optimal/Above Optimal LDL: 110- 129 mg/dLBorderline High LDL: 130-159 mg/dLHigh LDL: 160-189 mg/dLVery High LDL: greater than or equal to 190 mg/dL HDL Cholesterol 29(L) >40 mg/dL [facility] Comment:Desirable HDL: great er than 40 mg/dL Note: This HDL assay may give artificially low results in patients with liver disease. 02/10/2025 9:19 AM EDT 02/10/2025 2:12 PM EDT us Yordy Banda MD LAB BLOOD ORDERABLES Final Result [facility] [address] [place] [phone] documented in this encounter Visit Diagnoses Not on filedocumented in this encounter Additional Health Concerns Assessment Noted Time PHQ-9 Depression Total Score: 0 02/28/20 23 9:14 AM EDT documented as of this encounter Care Teams Application Performance Engineer Relationship Specialty Start Date End Date Yordy Banda MD [address] [place] [address] PCP - General Internal Medicine 08/21/17 Cherie Fung PharmD [address] [place] [address] Pharmacist Internal Medicine 11/09/24 documented as of this encounter
--- OUTSIDE RECORDS SUMMARY | 2025-02-11 14:09 | XMS_ITS | Encounter Summary ---
Author Organization [employer] Address [address] [place] [address] 7 [place] [address] Care Team Providers Care Cripple Chaser Name Role Phone Yordy Banda MD Primary Care Provider [phone] Cherie Fung PharmD Unavailable [phone] Reason for Visit * Reason Comments Follow-up Chronic conditions Encounter Details Date Type Department Care Team ([facility] Contact Info) Description 02/07/2025 11:00 AM EDT Office Visit [facility] MED & PEDS 505 [place], [place] [phone] Yordy Banda MD 505 [place] [address] Herpes zoster without complication (Primary Dx); Type 2 diabetes mellitus without complication, without long-term current use of insulin ([facility]); Subconjunctival hemorrhage of right eye; Obstructive sleep apnea syndrome; Dietary counseling; Exercise counseling; Class 2 severe obesity due to excess calories with serious comorbidity and body mass index (BMI) of 38.0 to 38.9 in adult ([facility]) Social History Tobacco Use Types Packs/Day Years [...] at bed time. Blood Glucose Monitoring Suppl ([employer] [facility] [employer]) w/Device kit Use to test blood [...] complication, without long-term current use of insulin ([facility]) Comments: Improved on Mounjaro. A1c 8.4% but [...] index (BMI) of38.0 to 38.9 in adult ([facility]) Dietary Recommendations: Fruits, vegetables, whole grains, protein [...] [facility] MED & PEDS [address] [place] [address] Yordy Banda MD 505 [place] [address] 03/10/2025 9:00 AM EDT Telemedicine [facility] MED & PEDS [address] [place] [address] Cherie Fung, PharmD [address] [place] [address] 05/12/2025 9:15 AM EDT Office Visit [facility] MED & PEDS [address] [place] [address] Yordy Banda MD 505 [place] [address] documented as of this encounter Goals Goal [...] complication, without long-term current use of insulin ([facility]) POCT GLUCOSE Routine 02/07/2025 10:03 AM EDT Type 2 diabetes mellitus without complication, without long-term current use of insulin ([facility]) documented in this encounter Results * (ABNORMAL) POCT glucose manually resulted (02/07/2025 10:03 AM EDT) Glucose Blood, POC 210(A) 60 - 200 mg/dL QC Media Lot # Comment:[id number] Lot# Expiration Date Comment:04/14/2025 Blood Capillary blood specimen / Unknown 02/07/2025 10:03 AM EDT Yordy Banda MD POINT OF CARE TEST ENTER/ED IT ORDERABLES Final Result * (ABNORMAL) POCT A1C (02/07/2025 10:03 AM EDT) Hemoglobin A1C 8.4(A) 4.0 - 6.0 % QC Media Lot # Comment:[id number] Lot# Expiration Date Comment:08/31/2026 Blood 02/07/2025 10:0 3 AM EDT us Yordy Banda MD POINT OF CARE TEST ENTER/ED IT ORDERABLES Final Result documented in this encounter Visit Diagnoses Diagnosis Herpes zoster without complication- Primary Type 2 diabetes mellitus without complication, without long-term current use of insulin ([facility]) Subconjunctival hemorrhage of right eye Obstructive sleep [...] documented as of this encounter Care Teams Cripple Chaser Relationship Specialty Start Date End Date Yordy Banda MD [address] [place] [address] PCP - General Internal Medicine 08/21/17 Cherie Fung PharmD [address] [place] [address] Pharmacist Internal Medicine 11/09/24 documented as of this encounter
--- OUTSIDE RECORDS SUMMARY | 2025-02-11 14:09 | XMS_ITS | Encounter Summary ---
Author Organization [employer] Address 75 [facility] 7t [place] [address] Care Team Providers Care Aeronautical Project Engineer Name Role Phone Yordy Banda MD Primary Care Provider [phone] Prasanna Pryor PharmD Unavailable Unavail able Cherie Fung PharmD Unavailable [phone] Encounter Details Date Type Department Care Team (Late st Contact Info) Description 08/24/2024 Orders Only [facility] [address] [place] [address] Provider, MD Pavel Social History Tobacco Use [...] 2:00 PM EDT Office Visit [facility] MED & PEDS [address] [place] [address] Yordy Banda MD 505 [place] [address] 03/10/2025 9:00 AM EDT Telemedicine [facility] MED & PEDS [address] [place] [address] Cherie Fung PharmD [address] [place] [address] 05/12/2025 9:15 AM EDT Office Visit [facility] MED & PEDS [address] [place] [address] Yordy Banda MD [address] [place] [address] documented as of this encounter Goals Goal [...] documented as of this encounter Care Teams Aeronautical Project Engineer Relationship Specialty Start Date End Date Yordy Banda MD [address] [place] [address] PCP - General Internal Medicine 08/21/17 Prasanna Pryor, PharmD [address] [place] [address] Pharmacist Internal Medicine 02/10/23 11/09/24 Cherie Fung, JoannD 230 [place] [address] Pharmacist Internal Medicine 11/09/24 documented as of this encounter
--- OUTSIDE RECORDS SUMMARY | 2025-02-11 14:09 | XMS_ITS | Encounter Summary ---
Author Organization [employer] Address [address] [facility] 7t [place] [address] Care Team Providers Care Pump Technician Name Role Phone Yordy Banda MD Primary Care Provider [phone] Prasanna Pryor PharmD Unavailable Unavail able Cherie Fung PharmD Unavailable [phone] Reason for Visit * Reason Onset Date Comments mri without contrast 08/02/2024 Encounter Details Date Type Department Care Team (Late st Contact Info) Description 08/02/2024 Telephone [facility] MEDICINE [address] [place] [address] Yordy Banda MD [address] [place] [address] mri without contrast Social History Tobacco Use [...] - 08/02/2024 11:42 AM EDT [facility] requested order for MRI abdominal without contrast. Any question contact One [facility] documented in this encounter Plan of Treatment Upcoming Encounters Date Type Department Care Team (Late st Contact Info) Description 02/21/2025 2:00 PM EDT Office Visit [facility] MED & PEDS [address] [place] [address] Yordy Banda MD [address] [place] [address] 03/10/2025 9:00 AM EDT Telemedicine [facility] [address] [place] [address] Cherie Fung, PharmD [address] [place] [address] 05/12/2025 9:15 AM EDT Office Visit [facility] [address] [place] [address] Yordy Banda MD [address] [place] [address] documented as of this encounter Goals Goal [...] documented as of this encounter Care Teams Pump Technician Relationship Specialty Start Date End Date Yordy Banda MD [address] [place] [address] PCP - General Internal Medicine 08/21/17 Prasanna Pryor, PharmD [address] [place] [address] Pharmacist Internal Medicine 02/10/23 11/09/24 Cherie Fung PharmD [address] [place] [address] Pharmacist Internal Medicine 11/09/24 documented as of this encounter
--- OUTSIDE RECORDS SUMMARY | 2025-02-11 14:09 | XMS_ITS | Encounter Summary ---
Author Organization [employer] Address [address] [facility] 7 [place] [address] Care Team Providers Care Security Services Specialist Name Role Phone Yordy Banda MD Primary Care Provider [phone] Prasanna Pryor PharmD Unavailable Unavail able Cherie Fung PharmD Unavailable [phone] Encounter Details Date Type Department Care Team ([facility] st Contact Info) Description 11/13/2023 Orders Only [facility] MED & PEDS [address] [place], [place] [phone] Yordy Banda MD [address] [place] [address] Encounter for HIV pre-exposure prophylaxis (Primary Dx) [...] 02/21/2025 2:00 PM EDT Office Visit [facility] MED [facility] PEDS [address] [place] [address] Yordy Banda MD [address] [place] [address] 03/10/2025 9:00 AM EDT Telemedicine [facility] MED & PEDS [address] [place] [address] Cherie Fung PharmD [address] [place] [address] 05/12/2025 9:15 AM EDT Office Visit [facility] MED & PEDS [address] [place] [address] Yordy Banda MD [address] [place] [address] documented as of this encounter Goals Goal [...] documented as of this encounter Care Teams Security Services Specialist Relationship Specialty Start Date End Date Yordy Banda MD [address] [place] [address] PCP - General Internal Medicine 08/21/17 Prasanna Pryor, JoannD [address] [place] [address] Pharmacist Internal Medicine 02/10/23 11/09/24 Cherie Fung PharmD [address] [place] [address] Pharmacist Internal Medicine 11/09/24 documented as of this encounter
--- OUTSIDE RECORDS SUMMARY | 2025-02-11 14:09 | XMS_ITS | Encounter Summary ---
Author Organization [employer] Address [address] [facility] 7 [place] [address] Care Team Providers Care Hand Tire Trimmer Name Role Phone Yordy Banda MD Primary Care Provider [phone] Cherie Fung PharmD Unavailable [phone] Reason for Visit * Reason Onset Date Comments Results 02/11/2025 Medication Question 02/11/2025 Encounter Details Date Type Department Care Team ([facility] Contact Info) Description 02/11/2025 Telephone [facility] CH[facility] MED & PEDS [address] [place], [place] [phone] Yordy Banda MD [address] [place] [address] Results; Medication Question Social History Tobacco Use Types Packs/Day Years [...] Encounter - Kierra Colindres RN - 02/11/2025 1:33 PM EDT TC from pt. Pt states he is Okay without an parts interpreter. Message read from Dr. Banda: Please call. Mr. Rudolph Rutledge has elevated [...] be to exercise 150 minutes a week. Pt states that he is complaint on his medication. So RN explained that he will be increased to the 40 mg dose. Pt verbalized understanding and agreement with the plan of care. Note routed to the provider documented in this encounter Plan of Treatment Upcoming Encounters Date Type Department Care Team (Late st Contact Info) Description 02/21/2025 2:00 PM EDT Office Visit [facility] MED & PEDS [address] [place], [place] [phone] Yordy Banda MD [address] [place], [place] [phone] 03/10/2025 9:00 AM EDT Telemedicine [facility] MED [facility] PED[facility] [address] [place] [address] Cherie Fung PharmD [address] [place] [address] 05/12/2025 9:15 AM EDT Office Visit [facility] MED & PED[facility] [address] [place], [place] [phone] Yordy Banda MD [address] [place] [address] documented as of this encounter Goals Goal [...] documented as of this encounter Care Teams Hand Tire Trimmer Relationship Specialty Start Date End Date Yordy Banda MD [address] [place] [address] PCP - General Internal Medicine 08/21/17 Cherie Fung PharmD [address] [place] [address] Pharmacist Internal Medicine 11/09/24 documented as of this encounter
--- OUTSIDE RECORDS SUMMARY | 2025-02-11 14:10 | XMS_ITS | Encounter Summary ---
Author Organization [employer] Address [address] [place] [address] 7 [place] [address] Care Team Providers Care Community Service Worker Name Role Phone Yordy Banda MD Primary Care Provider [phone] Prasanna Pryor PharmD Unavailable Unavail able Cherie Fung PharmD Unavailable [phone] Reason for Referral * Imaging (Routine) - Closed Specialty Diagnoses / Procedures Referred By Contac t Referred To Contact Radiology Diagnoses Hypertriglyceridemia Transaminitis Procedures US Abdomen Complete Yordy Banda MD [address] [place] [address] Phone: tel: fax: [facility] [address] [place], [place] Phone: tel: fax: Referral ID Status Reason Start Date Expiration Date Visits Re quested Visits Authorized [id number] Closed 06/22/2024 06/22/2025 1 1 Encounter Details Date Type Department Care Team (Latest Contact Info) Description 06/22/2024 Orders Only [facility] CHC MED & PEDS [address] [place], [place] [phone] Yordy Banda MD [address] [place], [place] [phone] Hypertriglyceridemia (Primary Dx); Transaminitis Social History Tobacco [...] Upcoming Encounters Date Type Department Care Team ([facility] st Contact Info) Description 02/21/2025 2:00 PM EDT Office Visit [facility] MED & PEDS [address] [place] [address] Yordy Banda MD [address] [place] [address] 03/10/2025 9:00 AM EDT Telemedicine [facility] MED & PEDS [address] [place] [address] Cherie Fung PharmD [address] [place] [address] 05/12/2025 9:15 AM EDT Office Visit [facility] MED & PEDS [address] [place] [address] Yordy Banda MD [address] [place] [address] documented as of this encounter Goals Goal Patient Goal Type Associated Problems Recent Progress Patient-Stated? Author Hemoglobin A1c < 7 Result Component 8(02/10/2025 9:19 AM EDT) No Prasanna Pryor, [place] documented [...] as of this encounter Care Teams Community Service Worker Relationship Specialty Start Date End Date Yordy Banda MD [address] [place] [address] PCP - General Internal Medicine 08/21/17 Prasanna Pryor, PharmD [address] [place] [address] Pharmacist Internal Medicine 02/10/23 11/09/24 Cherie Fung, JoannD [address] [place] [address] Pharmacist Internal Medicine 11/09/24 documented as of this encounter
--- OUTSIDE RECORDS SUMMARY | 2025-02-11 14:10 | XMS_ITS | Encounter Summary ---
Author Organization [employer] Address [address] [place] [address] 7 [place] [address] Care Team Providers Care Treasury Consultant Name Role Phone Yordy Banda MD Primary Care Provider [phone] Cherie Fung PharmD Unavailable [phone] Reason for Visit * Reason Onset Date Comments Appointment Request 12/23/2024 Encounter Details Date Type Department Care Team ([facility] st Contact Info) Description 12/23/2024 Telephone [facility] CHC MED & PEDS [address] [place], [place] [phone] Yordy Banda MD [address] [place] [address] Appointment Request Social History Tobacco Use Types [...] r/s today's CDTM visit. Contact pt at [phone] documented in this encounter Plan of Treatment Upcoming Encounters Date Type Department Care Team (Late st Contact Info) Description 02/21/2025 2:00 PM EDT Office Visit [facility] MED & PEDS [address] [place] [address] Yordy Banda MD [address] [place] [address] 03/10/2025 9:00 AM EDT Telemedicine [facility] MED & PEDS [address] [place] [address] Cherie Fung, PharmD [address] [place], [place] [phone] 05/12/2025 9:15 AM EDT Office Visit [facility] MED & PEDS [address] [place] [address] Yordy Banda MD [address] [place], [place] documented as of this encounter Goals [...] documented as of this encounter Care Teams Treasury Consultant Relationship Specialty Start Date End Date Yordy Banda MD [address] [place] [address] PCP - General Internal Medicine 08/21/17 Cherie Fung PharmD [address] [place] [address] Pharmacist Internal Medicine 11/09/24 documented as of this encounter
--- OUTSIDE RECORDS SUMMARY | 2025-02-11 14:10 | XMS_ITS | Encounter Summary ---
Author Organization [employer] Address [address] [facility] 7t [place] [address] Care Team Providers Care Director Of Land Acquisition Name Role Phone Yordy Banda MD Primary Care Provider [phone] Prasanna Pryor PharmD Unavailable Unavail able Cherie Fung PharmD Unavailable [phone] Reason for Visit * Reason Comments Med Refill Encounter Details Date Type Department Care Team ([facility] Contact Info) Description 07/13/2024 Refill [facility] CHC MED & PEDS [address] [place], [place] [phone] Yordy Banda MD [address] [place] [address] Encounter for HIV pre-exposure prophylaxis Social History [...] Description 02/21/2025 2:00 PM EDT Office Visit [facility] MED & PEDS [address] [place] [address] Yordy Banda MD [address] [place] [address] 03/10/2025 9:00 AM EDT Telemedicine [facility] MED & PEDS [address] [place] [address] Cherie Fung PharmD [address] [place] [address] 05/12/2025 9:15 AM EDT Office Visit [facility] MED & PEDS [address] [place] [address] Yordy Banda MD [address] [place] [address] documented as of this encounter Goals Goal [...] documented as of this encounter Care Teams Director Of Land Acquisition Relationship Specialty Start Date End Date Yordy Banda MD [address] [place] [address] PCP - General Internal Medicine 08/21/17 Prasanna Pryor PharmD [address] [place] [address] Pharmacist Internal Medicine 02/10/23 11/09/24 Cherie Fung PharmD [address] [place] [address] Pharmacist Internal Medicine 11/09/24 documented as of this encounter
--- OUTSIDE RECORDS SUMMARY | 2025-02-11 14:10 | XMS_ITS | Clinical Summary ---
Author Organization [employer] Address [address] [facility] 7t [place] [address] Care Team Providers Care Psychiatric Nurse Name Role Phone Yordy Banda MD Primary Care Provider [phone] Cherie Fung PharmD Unavailable [phone] Allergies Active Allergy Reactions Criticality Noted Date [...] hyperglycemia, without long-term current use of insulin ([facility]) TEST BLOOD SUGAR THREE TIMES DAILY 100 strip 11 02/20/20 24 Active Alcohol Swabs (Alcohol Prep) 70 % pads TEST BLOOD SUGAR THREE TIMES DAILY 100 each 11 02/20/20 24 Active econazole nitrate 1 % creamIndication s:Seborrheic dermatitis Apply topically Once per day. 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 90 tablet 11 09/29/20 24 025 Active Blood Glucose Monitoring Suppl ([employer] Lite) w/Device kitIndications: Type 2 diabetes mellitus without complication, without long-term current use of insulin ([facility]) Use to test blood sugar 1 times daily 1 kit 09/29/20 24 Active Easy Touch Lancets 33G/Twist miscIndications :Type 2 diabetes mellitus without complication, without long-term current use of insulin ([facility]) TEST BLOOD SUGAR THREE TIMES [...] eyes. 15 mL 02/08/20 25 026 Active rosuvastatin (Crestor) 20 MG tabletIndicatio ns:Hypertriglyc eridemia Take 2 tablets (40 mg) by mouth Once per day. 60 tablet 11 02/12/20 25 026 Active rosuvastatin (Crestor) 40 MG tabletIndicatio ns:Hypercholest eremia Take 1 tablet (40 mg) by mouth Once per day. 30 tablet 02/12/20 25 026 Active ketoconazole (Nizoral) 2 % shampooIndicati ons:Balanitis Apply topically 2 (two) times a week. 120 mL 3 01/31/20 23 025 Discontinued(D uplicate order (will not trigger notification to Pharmacy)) dulaglutide (Trulicity) 4.5 MG/0.5ML solution pen-injectorInd ications:Type 2 diabetes mellitus without complication, without long-term current use of insulin ([facility]) Inject 4.5 mg under the skin 1 (one) time per week. 4 each 06/21/20 24 025 Discontinued(A lternate therapy) rosuvastatin (Crestor) 20 MG tabletIndicatio ns:Hypertriglyc eridemia Take 1 tablet (20 mg) by mouth Once per day. 30 tablet 11 06/22/20 24 025 Discontinued(T herapy completed) emtricitabine-t enofovir AF (Descovy) 200-25 MG tabletIndicatio [...] Encounters Date Type Department Care Team Description 02/11/2025 Telephone [facility] [address] [place] [address] Yordy Banda MD 02/11/2025 Telephone [facility] [address] [place] [address] Yordy Banda MD Results; Medication Question 02/11/2025 Telephone [facility] [address] [place] [address] Yordy Gupta MD Results 02/10/2025 Orders Only [facility] [address] [place] [address] Yordy Banda MD 02/10/2025 Travel 02/07/2025 11:00 AM EDT Office Visit [facility] [address] [place] [address] Yordy Banda MD Herpes zoster without complication (Primary Dx); Type 2 diabetes mellitus without complication, without long-term current use of insulin ([facility]); Subconjunctival hemorrhage of right eye; Obstructive sleep apnea syndrome; Dietary counseling; Exercise counseling; Class 2 severe obesity due to excess calories with serious comorbidity and body mass index (BMI) of 38.0 to 38.9 in adult ([facility]) 02/07/2025 Travel 02/06/2025 Orders Only [facility] [address] [place] [address] Yordy Banda MD Hypercholesteremia (Primary Dx) 02/03/2025 Travel 01/28/2025 Refill [facility] [address] [place] [address] Yordy Banda MD Encounter for HIV pre-exposure prophylaxis 01/26/2025 Telephone [facility] [address] [place] [address] Cherie Fung PharmD 01/13/2025 11:30 AM EDT Telemedicine [facility] [address] [place] [address] Cherie Fung, PharmD Type 2 diabetes mellitus without complication, without long-term current use of insulin ([facility]) (Primary Dx); On pre-exposure prophylaxis for HIV 01/13/2025 Travel 12/27/2024 Orders Only [facility] [address] [place] [address] Pavel Gutierrez MD 12/23/2024 Telephone [facility] [address] [place] [address] Yordy Banda MD Appointment Request 12/22/2024 Travel 12/02/2024 Telephone [facility] [address] [place], [place] [phone] Yordy Banda MD Appointment Request from Last [...] [facility] [address] [place] [address] Yordy Banda MD [address] [place] [address] 03/10/2025 9:00 AM EDT Telemedicine [facility] [address] [place] [address] Cherie Fung, PharmD [address] [place], [place] [phone] 05/12/2025 9:15 AM EDT Office Visit [facility] [address] [place] [address] Yordy Banda MD [address] [place], [place] [phone] Health Maintenance Due Date Last Done Comments Family Planning (PISQ) 1999 Hepatitis A Vaccines (1 of 2 - Risk 2-dose series) 2003 Hepatitis B Vaccines (1 of 3 - 19+ 3-dose series) 2003 Influenza Vaccine (#1) 2024 , 07/26/2021, 09/21/2020, Additional history exists Diabetes: Hemoglobin A1C 05/13/2025 025, 02/07/2025, 09/29/2024, Additional history exists Diabetes: Urine Protein Screening 08/20/2025 08/20/2024, 06/21/2024, 09/01/2020 Diabetes: Foot Exam 09/29/2025 09/29/2024, 07/10/2023, 07/10/2023, Additional history exists Alcohol/Substance Use Screening 11/08/2025 11/08/2024 Depression Screening 11/08/2025 11/08/2024, 02/28/20 SDOH Screening 11/08/2025 11/08/2024 Eye Exam 12/31/2025 01/01/2024, 12/12, 01/01/2024, Additional history exists Tobacco Screening 02/07/2026 02/07/2025 Lipid Panel 02/10/2026 02/10/2025, 06/2024, 09/01/2020 DTaP/Tdap/Td Vaccines (2 - Td or Tdap) 10/20/2027 10/20/2017 Zoster Vaccines (1 of 2) 2034 RSV Patients and Patients Aged 60 years or older (1 - 1-dose 75+ series) 2059 Pneumococcal Vaccine: Pediatrics (0 to 5 Years) and At-Risk Patients (6 to 49) Years) Completed 02/20/2023 COVID-19 Vaccine Completed 09/29/2024, 02/2022, 03/22/2021, Additional history exists Hepatitis C Screening Completed 10/21/2024, 024 HIV Screening Completed 02/10/2025, 06/2025, 06/21/2024 HIB Vaccines Aged Out No longer eligi [...] 9:19 AM EDT) No Prasanna Pryor, [place] Procedures Procedure Name Priority Date/Time Associated Diagnosis Comments SYPHILIS SCREEN Routine 02/10/2025 9:19 AM EDT HEPATITIS B SURFACE ANTIGEN, EIA Routine 02/10/2025 9:19 AM EDT HIV 1/2 ANTIGEN/ANTIBODY, FOURTH GENERATION W/RFL Routine 02/10/2025 9:19 AM EDT HEPATITIS B CORE AB TOTAL Routine 02/10/2025 9:19 AM EDT HEPATITIS B SURFACE ANTIBODY, QUALITATIVE Routine 02/10/2025 9:19 AM EDT HEMOGLOBIN A1C Routine 02/10/2025 9:19 AM EDT LIPID PANEL, STANDARD Routine 02/10/2025 9:19 AM EDT POCT GLUCOSE Routine 02/07/2025 10:03 AM EDT Type 2 diabetes mellitus without complication, without long-term current use of insulin (CMS/HCC) POCT GLYCATED HEMOGLOBIN, TOTAL Routine 02/07/2025 10:03 AM EDT Type 2 diabetes mellitus without complication, without long-term current use of insulin (CMS/HCC) ECG 12-LEAD Routine 12/27/2024 4:09 PM EDT HEPATITIS C ANTIBODY ([facility]) Routine 10/21/2024 ALBUMIN/CREATININE RATIO, RANDOM URINE Routine 08/20/2024 3:33 PM EST from Last 3 Months or Most Recently Relevant to Health Maintenance Results * Syphilis Screen (02/10/2025 9:19 AM EDT) Syphilis Screen Nonreactive Nonreactive [facility] 02/10/2025 9:19 AM EDT 02/10/2025 2:12 PM EDT us Yordy Banda MD LAB BLOOD ORDERABLES Final Result [facility] [address] [place] [address] [phone] * Hepatitis B surface antigen, EIA (02/10/2025 9:19 AM EDT) Hepatitis B Surface Ag Negative Negative [facility] 02/10/2025 9:19 AM EDT 02/10/2025 2:12 PM EDT us Yordy Banda MD LAB BLOOD ORDERABLES Final Result Performing Organization Address City/[facility]/ZIP Co de Phone Number [facility] [address] [place] [phone] * Hepatitis B Core Antibody, Total (02/10/2025 9:19 AM EDT) Hepatitis B Core Antibody Nonreactive Nonreactive [facility] 02/10/2025 9:19 AM EDT 02/10/2025 2:12 PM EDT us Yordy Banda MD LAB BLOOD ORDERABLES Final Result Performing Organization Address City/[facility] Co de Phone Number [facility] [address] [place] [phone] * HIV-1/2 Antigen and Antibodies, Fourth Generation, with Reflexes (02/10/2025 9:19 AM EDT) Pathologist [facility] HIV AB/AG Nonreactive Nonreactive [facility] Comment:HIV-1 p24 Ag and/or HIV-1/HIV-2 Ab not detected.A test result that is nonreactive does not exclude thepossibility of exposure to or infection with HIV-1 and/orHIV-2. Nonreactive results in this assay for individualswith prior exposure to HIV-1 and/or HIV-2 may be due toantigen and antibody levels that are below the limit ofdetection of this assay.The [employer] HIV Ag/Ab Combo assay result andsupplemental assay results should be interpreted inconjunction with the patient's clinical presentation,history and other laboratory results. If the results areinconsistent with clinical evidence, additional testing issuggested to confirm the result. 02/10/2025 9:19 AM EDT 02/10/2025 2:12 PM EDT Yordy Banda MD LAB BLOOD ORDERABLES Final Result Performing Organization Address [facility]/ZIP Co de Phone Number [facility] [address] [place] [phone] * Hepatitis B Surface Antibody, Qualitative (02/10/2025 9:19 AM EDT) ~Hepatitis B Surface Antibody NONREACTIVE Nonreactive [facility] Comment:Nonreactive: < 8.00 mIU/mL 02/10/2025 9:19 AM EDT 02/10/2025 2:12 PM EDT Yordy Banda MD LAB BLOOD ORDERABLES Final Result Performing Organization Address [facility] Co de Phone Number [facility] [address] [place] [phone] * (ABNORMAL) Hemoglobin A1c (02/10/2025 9:19 AM EDT) Hemoglobin A1c 8.0(H) <6.0 % [facility] Comment:Hemoglobin A1C Refer ence Range Adults: 4.8 - 6.0 % Non diabetic: < 6.0 % Goal: < 7.0 %Additional Action Suggested: > 8.0 %Note: Hemoglobin A1c results are invalid for patients with abnormal amounts of HbF. Blood transfusions may impact the HbA1c concentration in the patient sample. Estimated Average Glucose 183 mg/dL [facility] Comment:eAG = Estimated ave rage glucose which is %A1C expressed asaverage glucose, using the formula of the S7Y-AgkfsqwYqlehfh Glucose study (ADAG), Diabetes Care, Vol.31,#8,May. 2007 02/10/2025 9:19 AM EDT 02/10/2025 2:12 PM EDT Yordy Banda MD LAB BLOOD ORDERABLES Final Result Performing Organization Address [facility] Co de Phone Number [facility] [address] [place] [phone] * (ABNORMAL) Lipid Panel, Standard (02/10/2025 9:19 AM EDT) Triglycerides 378(H) <150 mg/dL [facility] Comment:Slight Lipemia.Jacinta able Triglyceride: less than 150 mg/dLBorderline High Triglyceride 150-199 mg/dLHigh Triglyceride: 200-499 mg/dLVery High Triglyceride: greater than or equal to 5OO mg/dL Cholesterol 173 <200 mg/dL [facility] Comment:Desirable Cholestero l: less than 200 mg/dLBorderline High Cholesterol: 200-239 mg/dLHigh Cholesterol: greater than 239 mg/dL LDL Cholesterol Calculated 69 <100 mg/dL [facility] Comment:Desirable LDL: less than 100 mg/dLNear Optimal/Above Optimal LDL: 110- 129 mg/dLBorderline High LDL: 130-159 mg/dLHigh LDL: 160-189 mg/dLVery High LDL: greater than or equal to 190 mg/dL HDL Cholesterol 29(L) >40 mg/dL [facility] Comment:Desirable HDL: great er than 40 mg/dL Note: This HDL assay may give artificially low results in patients with liver disease. 02/10/2025 9:19 AM EDT 02/10/2025 2:12 PM EDT Yordy Banda MD LAB BLOOD ORDERABLES Final Result Performing Organization Address [facility] Co de Phone Number [facility] [address] [place] [address] [phone] * (ABNORMAL) POCT A1C (02/07/2025 10:03 AM EDT) Hemoglobin A1C 8.4(A) 4.0 - 6.0 % QC Media Lot # Comment:[id number] Lot# Expiration Date Comment:08/31/2026 Blood 02/07/2025 10:0 3 AM EDT Result [facility] Yordy Banda MD POINT OF CARE TEST ENTER/ED IT ORDERABLES Final Result * (ABNORMAL) POCT glucose manually resulted (02/07/2025 10:03 AM EDT) Pathologist [facility] Glucose Blood, POC 210(A) 60 - 200 mg/dL QC Media Lot # Comment:[id number] Lot# Expiration Date Comment:04/14/2025 Blood Capillary blood specimen / Unknown 02/07/2025 10:03 AM EDT Result [facility] Yordy Banda MD POINT OF CARE TEST ENTER/ED IT ORDERABLES Final Result * ECG 12 lead (12/27/2024 4:09 PM EDT) Result [facility] Historical Provider ECG ORDERABLES Final Res ult * Hepatitis C Antibody ([facility]) (10/21/2024) [facility] Hepatitis C Ab Nonreactive Blood 10/21/2024 Result [facility] Provider LAB BLOOD ORDERABLES Ellie l Result * Albumin/Creatinine Ratio, Random Urine (08/20/2024 3:33 PM EST) Urine (Urine, Random) Result [facility] Historical Provider LAB URINE ORDERABLES Ellie l Result from Last 3 Months or Most Recently Relevant to Health Maintenance Insurance [facility] ONE CARE < 65 ANDREI DICKERSON [id number] Care Teams Psychiatric Nurse Relationship Specialty Start Date End Date Yordy Banda MD [address] [place] [phone] PCP - General Internal Medicine 08/21/17 Cherie Fung PharmD [address] [place] [phone] Pharmacist Internal Medicine 11/09/24
--- OUTSIDE RECORDS SUMMARY | 2025-02-11 14:10 | XMS_ITS | Encounter Summary ---
Author Organization [employer] Address [address] [facility] 7 [place] [address] Care Team Providers Care Stonecutter Hand Name Role Phone Yordy Banda MD Primary Care Provider [phone] Cherie Fung PharmD Unavailable [phone] Reason for Visit * Reason Onset Date Comments Appointment Request 12/02/2024 Encounter Details Date Type Department Care Team ([facility] st Contact Info) Description 12/02/2024 Telephone [facility] [address] [place] [address] Yordy Banda MD [address] [place] [address] Appointment Request Social History Tobacco Use Types [...] r/s Appt from 12/02/24. Contact pt at [phone] documented in this encounter Plan of Treatment Upcoming Encounters Date Type Department Care Team (Late st Contact Info) Description 02/21/2025 2:00 PM EDT Office Visit [facility] [address] [place] [address] Yordy Banda MD [address] [place] [address] 03/10/2025 9:00 AM EDT Telemedicine [facility] [address] [place] [address] Cherie Fung, PharmD [address] [place] [address] 05/12/2025 9:15 AM EDT Office Visit [facility] [address] [place] [address] Yordy Banda MD [address] [place] [address] documented as of this encounter Goals Goal Patient Goal Type Associated Problems Recent Progress Patient-Stated? Author Hemoglobin A1c < 7 Result Component 8(02/10/2025 9:19 AM EDT) No Prasanna Pryor, JoannD documented as of this encounter Visit Diagnoses Not on filedocumented in this encounter Additional Health Concerns Assessment Noted Time PHQ-9 Depression Total Score: 0 02/28/20 9:14 AM EDT documented as of this encounter Care Teams Stonecutter Hand Relationship Specialty Start Date End Date Yordy Banda MD [address] [place] [phone] PCP - General Internal Medicine 08/21/17 Cherie Fung PharmD [address] [place] [phone] Pharmacist Internal Medicine 11/09/24 documented as of this encounter
--- OUTSIDE RECORDS SUMMARY | 2025-02-11 14:10 | XMS_ITS | Encounter Summary ---
Author Organization [employer] Address 75 [facility] 7t [place] [address] Care Team Providers Care Worm Grower Name Role Phone Yordy Banda MD Primary Care Provider [phone] Cherie Fung PharmD Unavailable [phone] Encounter Details Date Type Department Care Team (Late st Contact Info) Description 12/27/2024 Orders Only [facility] [address] [place], [place] [phone] ProviderPavel MD Social History Tobacco Use Types [...] 02/21/2025 2:00 PM EDT Office Visit [facility] [address] [place] [address] Yordy Banda MD [address] [place] [address] 03/10/2025 9:00 AM EDT Telemedicine [facility] [address] [place] [address] hCerie Fung PharmD [address] [place] [address] 05/12/2025 9:15 AM EDT Office Visit [facility] [address] [place] [address] Yordy Banda MD [address] [place] [address] documented as of this encounter Goals Goal [...] documented as of this encounter Care Teams Worm Grower Relationship Specialty Start Date End Date Yordy Banda MD [address] [place] [address] PCP - General Internal Medicine 08/21/17 Cherie Fung PharmD [address] [place] [address] Pharmacist Internal Medicine 11/09/24 documented as of this encounter
--- OUTSIDE RECORDS SUMMARY | 2025-02-11 14:10 | XMS_ITS | Encounter Summary ---
Author Organization [employer] Address 75 [facility] 7t [place] [address] Care Team Providers Care Projection Engineer Name Role Phone Yordy Banda MD Primary Care Provider [phone] Cherie Fung PharmD Unavailable [phone] Encounter Details Date Type Department Care Team [...] [facility] [address] [place] [address] Yordy Banda MD [address] [place] [address] 03/10/2025 9:00 AM EDT Telemedicine [facility] [address] [place] [address] Cherie Fung, [place] [address] [place] [address] 05/12/2025 9:15 AM EDT Office Visit [facility] [address] [place] [address] Yordy Banda MD [address] [place] [address] documented as of this encounter Goals Goal [...] documented as of this encounter Care Teams Projection Engineer Relationship Specialty Start Date End Date Yordy Banda MD [address] [place] [address] PCP - General Internal Medicine 08/21/17 FungCherie PharmD [address] [place] [address] Pharmacist Internal Medicine 11/09/24 documented as of this encounter
--- OUTSIDE RECORDS SUMMARY | 2025-02-11 14:10 | XMS_ITS | Encounter Summary ---
Author Organization [employer] Address 75 [facility] 7 [place] [address] Care Team Providers Care Miller Helper Distillery Name Role Phone Yordy Banda MD Primary Care Provider [phone] Cherie Fung PharmD Unavailable [phone] Encounter Details Date Type Department Care Team (Latest Contact Info) Description 02/06/2025 Orders Only [facility] [address] [place], [place] [phone] Yordy Banda MD [address] [place] [address] Hypercholesteremia (Primary Dx) Social History Tobacco Use Types [...] 02/21/2025 2:00 PM EDT Office Visit [facility] [address] [place] [address] Yordy Banda MD [address] [place] [address] 03/10/2025 9:00 AM EDT Telemedicine [facility] [address] [place] [address] Cherie Fung PharmD [address] [place] [address] 05/12/2025 9:15 AM EDT Office Visit [facility] [address] [place] [address] Yordy Banda MD [address] [place] [address] documented as of this encounter Goals Goal Patient Goal Type Associated Problems Recent Progress Patient-Stated? Author Hemoglobin A1c < 7 Result Component 8(02/10/2025 9:19 AM EDT) No Prasanna Pryor, PharmD documented as of this encounter Visit Diagnoses Diagnosis Hypercholesteremia- Primary Pure hypercholesterolemia documented in this encounter Additional Health Concerns Assessment Noted Time PHQ-9 Depression Total Score: 0 02/28/20 23 9:14 AM EDT documented as of this encounter Care Teams [employer] Relationship Specialty Start Date End Date Yordy Banda MD [address] [place] [address] PCP - General Internal Medicine 08/21/17 Cherie Fung PharmD [address] [place] [phone] Pharmacist Internal Medicine 11/09/24 documented as of this encounter
[2025-02-15 00:58] LABS: C.Trachomatis RNA TMA, Rectal NOT DETECTED; N.Gonorrhoeae RNA TMA, Rectal NOT DETECTED
[2025-02-15 11:32] LABS: C. Trachomatis RNA TMA, Throat NOT DETECTED; N. gonorrhoeae RNA TMA, Throat NOT DETECTED
== END 2025-02-11 13:51 | disposition home or self-care (01) ==
LOC: HO.CHCLNP 13:50
PROVIDERS: Visit Provider Internal Medicine
DX: Z79.899 Other long term (current) drug therapy (principal)
CPT/HCPCS: 87491; 87591

== ENCOUNTER → 2025-06-12 20:30 | Outpatient (REF) | payer OTHER, SELFPAY ==
--- OUTSIDE RECORDS SUMMARY | 2025-06-12 21:22 | XMS_ITS | Encounter Summary ---
Author Organization [employer] Address 75 [facility] 7 [place] [address] Care Team Providers Care Artificial Inseminator Name Role Phone Yordy Banda MD Primary Care Provider [phone] Prasanna Pryor PharmD Unavailable Unavail able Cherie Fung PharmD Unavailable [phone] Reason for Visit * Reason Onset Date Comments mri without contrast 08/02/2024 Encounter Details Date Type Department Care Team ([facility] st Contact Info) Description 08/02/2024 Telephone [facility] [address] [place] [address] Yordy Banda MD [address] [place] [address] mri without contrast Social History Tobacco Use Types Packs/Day Years Used Date Smoking Tobacco: Never Smokeless Tobacco: Never Alcohol Use Standard Drinks/Week Comments Never 0 (1 standard drink = 0.6 oz pur e alcohol) Depression Answer Date Recorded Patient Health Questionnaire-9 Score 0 02/27/2023 Housing Stability Answer Date Recorded What is your housing situation today? I have francisca sing 03/25/[address] you li [...] - 08/02/2024 11:42 AM EDT Tc from [facility] requested order for MRI abdominal without contrast. Any question contact [employer] documented in this encounter Plan of Treatment Upcoming Encounters Date Type Department Care Team (Late st Contact Info) Description 07/28/2025 9:00 AM EDT Medication Management [facility] [address] [place] [address] Cherie Fung PharmD [address] [place] [address] 08/04/2025 9:45 AM EDT Office Visit [facility] [address] [place] [address] TarAmi bales, OD [address] [place] [address] documented as of this encounter Goals Goal Patient Goal Type Associated Problems Recent Progress Patient-Stated? Author Hemoglobin A1c < 7 Result Component 8.7(06/02/2025 10:51 AM EDT) No Prasanna Pryor, PharmD documented as of this encounter Visit Diagnoses Not on filedocumented in this encounter Additional Health Concerns Assessment Noted Time PHQ-9 Depression Total Score: 0 02/28/20 23 9:14 AM EDT documented as of this encounter Care Teams Artificial Inseminator Relationship Specialty Start Date End Date Yordy Banda MD [address] [place] [address] PCP - General Internal Medicine 08/21/17 Prasanna Pryor PharmD [address] [place] [address] Pharmacist Internal Medicine 02/10/23 11/09/24 Cherie Fung PharmD [address] [place] [address] Pharmacist Internal Medicine 11/09/24 documented as of this encounter
--- OUTSIDE RECORDS SUMMARY | 2025-06-12 21:22 | XMS_ITS | Encounter Summary ---
Author Organization [facility] Address [address] [place] [id number] Care Team Providers Care Superior Court Judge Name Role Phone Yordy Banda MD Primary Care Provider [phone] Prasanna Pryor PharmD Unavailable Unavail able Cherie Fung PharmD Unavailable [phone] Reason for Visit * Reason Comments Med Refill Encounter Details Date Type Department Care Team ([facility] Contact Info) Description 11/05/2022 Refill [facility] [address] [place] [address] Yordy Banda MD [address] [place] [address] Type 2 diabetes mellitus with hyperglycemia, without long-term current use of insulin ([facility]) (Primary Dx) Social History Tobacco Use Types [...] Upcoming Encounters Date Type Department Care Team ([facility] Contact Info) Description 07/28/2025 9:00 AM EDT Medication Management [facility] MED & PEDS [address] [place], [place] [phone] Cherie Fung, PharmD [address] [place] [address] 08/04/2025 9:45 AM EDT Office Visit [facility] OPTOMET[facility] [address] [place], [place] [phone] Ami Verma, OD [address] [place] [address] documented as of this encounter Visit Diagnoses Diagnosis Type 2 diabetes mellitus with hyperglycemia, without long-term current use of insulin ([facility])- Primary documented in this encounter Care Teams Superior Court Judge Relationship Specialty Start Date End Date Yordy Banda MD [address] [place] [address] PCP - General Internal Medicine 08/21/17 Prasanna Pryor, PharmD [address] [place] [address] Pharmacist Internal Medicine 02/10/23 11/09/24 Cherie Fung, JoannD [address] [place] [address] Pharmacist Internal Medicine 11/09/24 documented as of this encounter
--- OUTSIDE RECORDS SUMMARY | 2025-06-12 21:22 | XMS_ITS | Encounter Summary ---
Author Organization [employer] Address [address] [facility] [address] [place] [address] Care Team Providers Care Wood Shop Teacher Name Role Phone Yordy Banda MD Primary Care Provider [phone] Prasanna Pryor PharmD Unavailable Unavail able Cherie Fung PharmD Unavailable [phone] Encounter Details Date Type Department Care Team ([facility] Contact Info) Description 08/27/2024 Orders Only [facility] CHC MED & PEDS [address] [place] [address] ProviderPavel MD Social History Tobacco Use Types Packs/Day Years Used Date Smoking Tobacco: Never Smokeless Tobacco: Never Alcohol Use Standard Drinks/Week Comments Never 0 (1 standard drink = 0.6 oz pur e alcohol) Depression Answer Date Recorded Patient Health Questionnaire-9 Score 0 02/27/2023 Housing Stability Answer Date Recorded What is your housing situation today? I have franciscanatalee steinberg 03/25/[address] you [...] t he electric, gas, oil or water [employer] threatened to shut off services in your [...] Description 07/28/2025 9:00 AM EDT Medication Management [facility] MED & PEDS [address] [place] [address] Cherie Fung PharmD [address] [place] [address] 08/04/2025 9:45 AM EDT Office Visit [facility] OPTOMETRY [address] [place] [address] TarkaAmi, OD [address] [place] [address] documented as of this encounter Goals Goal Patient Goal Type Associated Problems Recent Progress Patient-Stated? Author Hemoglobin A1c < 7 Result Component 8.7(06/02/2025 10:51 AM EDT) No Prasanna Pryor PharmD documented as of this encounter Procedures [...] documented as of this encounter Care Teams Wood Shop Teacher Relationship Specialty Start Date End Date Yordy Banda MD [address] [place] [address] PCP - General Internal Medicine 08/21/17 Prasanna Pryor, JoannD [address] [place] [address] Pharmacist Internal Medicine 02/10/23 11/09/24 Cherie Fung PharmD [address] [place] [address] Pharmacist Internal Medicine 11/09/24 documented as of this encounter
--- OUTSIDE RECORDS SUMMARY | 2025-06-12 21:22 | XMS_ITS | Encounter Summary ---
Author Organization [employer] Address [address] [facility] 7 [place] [address] Care Team Providers Care Copy Center Associate Name Role Phone Yordy Banda MD Primary Care Provider [phone] Prasanna Pryor PharmD Unavailable Unavail able Cherie Fung PharmD Unavailable [phone] Encounter Details Date Type Department Care Team ([facility] st Contact Info) Description 11/13/2023 Orders Only [facility] CHC MED & PEDS [address] [place], [place] [phone] Yordy Banda MD [address] [place] [address] Encounter for HIV pre-exposure prophylaxis (Primary Dx) [...] Description 07/28/2025 9:00 AM EDT Medication Management [facility] CHC MED & PEDS [address] [place] [address] Cherie Fung PharmD [address] [place] [address] 08/04/2025 9:45 AM EDT Office Visit [facility] OPTOMETRY [address] [place] [address] Ami Verma, OD [address] [place] [address] documented as of this encounter Goals Goal [...] documented as of this encounter Care Teams Copy Center Associate Relationship Specialty Start Date End Date Yordy Banda MD [address] [place] [address] PCP - General Internal Medicine 08/21/17 Prasanna Pryor, PharmD [address] [place] [address] Pharmacist Internal Medicine 02/10/23 11/09/24 Cherie Fung, JoannD [address] [place] [address] Pharmacist Internal Medicine 11/09/24 documented as of this encounter
--- OUTSIDE RECORDS SUMMARY | 2025-06-12 21:22 | XMS_ITS | Encounter Summary ---
Author Organization [employer] Address 75 [facility] 7 [place] [address] Care Team Providers Care Employee Welfare Manager Name Role Phone Yordy Banda MD Primary Care Provider [phone] Prasanna Pryor PharmD Unavailable Unavail able Cherie Fung PharmD Unavailable [phone] Encounter Details Date Type Department Care Team ([facility] st Contact Info) Description 10/25/[address] [facility] CHC MED & PEDS [address] [place], [place] [phone] Yordy Banda MD [address] [place] [address] Encounter for HIV pre-exposure prophylaxis Social History [...] Description 07/28/2025 9:00 AM EDT Medication Management [facility] CHC MED & PEDS [address] [place], [place] [phone] Cherie Fung PharmD [address] [place] [address] 08/04/2025 9:45 AM EDT Office Visit [facility] OPTOMETRY [address] [place] [address] Ami Verma, OD [address] [place] [address] documented as of this encounter Goals Goal [...] documented as of this encounter Care Teams Employee Welfare Manager Relationship Specialty Start Date End Date Yordy Banda MD [address] [place] [address] PCP - General Internal Medicine 08/21/17 Prasanna Pryor, PharmD [address] [place] [address] Pharmacist Internal Medicine 02/10/23 11/09/24 Cherie Fung, JoannD [address] [place] [address] Pharmacist Internal Medicine 11/09/24 documented as of this encounter
--- OUTSIDE RECORDS SUMMARY | 2025-06-12 21:22 | XMS_ITS | Clinical Summary ---
Author Organization [facility] Address [address] [place] [phone] Phone Care Team Providers Care Battery Charger Conveyor Line Name Role Phone Yordy Banda MD Primary Care Provider [phone] Allergies Active Allergy Reactions Criticality Noted Date Comments Metformin Diarrhea 12/27/2024 Medications hydrOXYzine HCL (ATARAX) 25 mg tabletIndication s:Chest pain, unspecified type Take 1 tablet (25 mg total) by mouth every 8 (eight) hours if needed for anxiety for up to 10 days. 30 tablet 12/27/2024 Active Social History Tobacco Use Types Packs/Day Years Used Date Smoking Tobacco: Never Assessed Sex and Gender Information Value Date Recorded Sex Assigned at Male 12/27/2024 2:26 PM EDT Legal Sex Male 1:57 PM EST Gender Identity Male 12/27/2024 2:26 PM EDT Sexual Orientation Straight 12/27/2024 2: 26 PM EDT Last Filed Vital Signs Vital Sign Reading Time Taken Comments Blood Pressure 134/60 12/27/2024 1:30 PM EDT Pulse 76 12/27/2024 1:30 PM EDT Temperature 37 C (98.6 F) 12/27/2024 1:30 PM EDT Respiratory Rate 20 12/27/2024 1:30 PM EDT Oxygen Saturation 94% 12/27/2024 1:30 PM EDT Inhaled Oxygen Concentration - - Weight 117 kg (259 lb) 12/27/2024 1:30 PM EDT Height 172.7 cm (5' 8 ) 12/27/2024 1:30 PM EDT Body Mass Index 39.38 12/27/2024 1:30 PM EDT Plan of Treatment Health Maintenance Due Date Last Done Comments DTaP,Tdap,and Td Vaccines (1 - Tdap) 2003 Hepatitis B Vaccines (1 of 3 - 19+ 3-dose series) 2003 COVID-19 Vaccine (1 - 2023-2 5 season) 2024 Depression Screening 10/13/2024 Cholesterol Screening (Lipid Panel) 12/27/2024 HIV Screening 12/27/2024 Hepatitis C Screening 12/27/2024 Medicare Annual Wellness Visit 12/27/2024 Social Influencers of Health Screening 12/27/2024 Influenza Vaccine (#1) 2025 HIB Vaccines Aged Out No longer eligi ble based on patient's age to complete this topic HPV Vaccines Aged Out No longer eligi ble based on patient's age to complete this topic Hepatitis A Vaccines Aged Out No long er eligible based on patient's age to complete this topic IPV Vaccines Aged Out No longer eligi ble based on patient's age to complete this topic MMR Vaccines Aged Out No longer eligi ble based on patient's age to complete this topic Meningococcal ACWY Vaccine Aged Out N o longer eligible based on patient's age to complete this topic Meningococcal B Vaccine Aged Out No l onger eligible based on patient's age to complete this topic Pneumococcal Vaccine: Pediat rics (0 to 5 Years) and At-Risk Patients (6 to 49 Years) Aged Out No longer eligible b ased on patient's age to complete this topic RSV Immunization Patients Un jackson 20 months Aged Out No longer eligible b ased on patient's age to complete this topic Varicella Vaccines Aged Out No longer eligible based on patient's age to complete this topic Insurance [facility] MEDIC[facility] Member Subscriber Plan / Payer (Ef fective 2024-Present) Name:Rudolph Sandoval Relation to Subscriber:Self Name:Rudolph Sandoval Payer ID:[id number] Group ID:Not on file Type:Not on file Address: [address] [place] [address] Care Teams Battery Charger Conveyor Line Relationship Specialty Start Date End Date Yordy Banda MD [address] [place] [address] PCP - General Internal Medicine 12/27/24
--- OUTSIDE RECORDS SUMMARY | 2025-06-12 21:22 | XMS_ITS | Encounter Summary ---
Author Organization [employer] Address 75 [facility] 7 [place] [address] Care Team Providers Care Pool Lifeguard Name Role Phone Yordy Banda MD Primary Care Provider [phone] Cherie Fung PharmD Unavailable [phone] Encounter Details Date Type Department Care Team ([facility] st Contact Info) Description 02/22/2025 Orders Only [facility] CHC MED & PEDS [address] [place], [place] [phone] Yordy Banda MD [address] [place] [address] Type 2 diabetes mellitus without complication, without long-term current use of insulin ([facility]) (Primary Dx) Social History Tobacco Use Types Packs/Day Years Used Date Smoking Tobacco: Never Smokeless Tobacco: Never Alcohol Use Standard Drinks/Week Comments Never 0 (1 standard drink = 0.6 oz pur e alcohol) Depression Answer Date Recorded Patient Health Questionnaire-9 Score 9 02/21/2025 Patient Health Questionnaire-9 Score 9 02/21/2025 Last PHQ-9: Questionnaire Data Not on file 0 02/21/2025 Housing Stability Answer Date Recorded What is [...] Date Recorded Patient Health Questionnaire-2 Score 1 02/21/2025 Internet Access Answer Date Recorded Internet Access [...] Description 07/28/2025 9:00 AM EDT Medication Management [facility] MED & PEDS [address] [place] [address] Cherie Fung PharmD [address] [place] [address] 08/04/2025 9:45 AM EDT Office Visit [facility] OPTOMETRY [address] [place] [address] TarkaAmi, OD [address] [place] [address] documented as of this encounter Goals Goal Patient Goal Type Associated Problems Recent Progress Patient-Stated? Author Hemoglobin A1c < 7 Result Component 8.7(06/02/2025 10:51 AM EDT) No Prasanna Pryor, PharmD documented as of this encounter Visit Diagnoses Diagnosis Type 2 diabetes mellitus without complication, without long-term current use of insulin ([facility])- Primary documented in this encounter Additional Health Concerns Assessment Noted Time PHQ-9 Depression Total Score: 9 02/22/20 25 2:04 PM EDT documented as of this encounter Care Teams Pool Lifeguard Relationship Specialty Start Date End Date Beauzile, Thevenin, MD [address] [place] [address] PCP - General Internal Medicine 08/21/17 Cherie Fung, JoannD [address] [place] [address] Pharmacist Internal Medicine 11/09/24 documented as of this encounter
--- OUTSIDE RECORDS SUMMARY | 2025-06-12 21:23 | XMS_ITS | Clinical Summary ---
Author Organization [employer] Address 75 [facility] 7t [place] [address] Care Team Providers Care Drawing Frame Tender Name Role Phone Yordy Banda MD Primary Care Provider [phone] Cherie Fung PharmD Unavailable [phone] Allergies Active Allergy Reactions Criticality Noted Date Comments Metformin Diarrhea Medium 11/17/2023 Medications ARIPiprazole (Abilify) 20 MG tablet Take 1 tablet by mouth at bed time. Active glucose-vitamin C 4-6 GM-MG oral gel To take 1 tab if FS < 70 mg/dl 1 Active citalopram (CeleXA) 40 MG tablet Take 40 mg by mouth in the morning. 3 Active mirtazapine (Remeron) 15 MG tablet Take 1.5 tablets by mouth at bedtime. 3 Active glucose 4 g chewable tablet Chew 4 tablets (16 g) if needed for low blood sugar. 50 tablet 11 3 Active chlorhexidine (Hibiclens) 4 % external liquidIndication s:Herpes dermatitis Apply topically if needed each day for wound care. 118 mL 3 Active ketoconazole (Nizoral) 2 % shampooIndicatio ns:Seborrheic dermatitis Apply topically 2 (two) times a week. 120 mL 1 3 Active FREESTYLE LITE test stripIndications :Type 2 diabetes mellitus with hyperglycemia, without long-term current use of insulin ([facility]) TEST BLOOD SUGAR THREE TIMES DAILY 100 strip 11 4 Active Alcohol Swabs (Alcohol Prep) 70 % pads TEST BLOOD SUGAR THREE TIMES DAILY 100 each 11 4 Active econazole nitrate 1 % creamIndications :Seborrheic dermatitis Apply topically Once per day. 30 g 4 025 Active repaglinide (Prandin) 0.5 MG tabletIndication s:Type 2 diabetes mellitus without complication, without long-term current use of insulin ([facility]) Take 1 tablet (0.5 mg) by mouth before breakfast, before lunch, and before evening meal. 90 tablet 11 4 025 Active Blood Glucose Monitoring Suppl (Tideway Lite) w/Device kitIndications:T ype 2 diabetes mellitus without complication, without long-term current use of insulin ([facility]) Use to test blood sugar 1 times daily 1 kit 4 Active Easy Touch Lancets 33G/Twist miscIndications: Type 2 diabetes mellitus without complication, without long-term current use of insulin ([facility]) TEST BLOOD SUGAR THREE TIMES DAILY 100 each 11 5 Active cholecalciferol (Vitamin D3) 25 MCG (1000 UT) tablet Take by mouth in the morning. 5 Active dextran 70-hypromellose (artificial tears) 0.1-0.3 % ophthalmic solutionIndicati ons:Subconjuncti jerson hemorrhage of right eye Administer 1 drop into the right eye if needed in the morning, at noon, and at bedtime for dry eyes. 15 mL 5 026 Active rosuvastatin (Crestor) 40 MG tabletIndication s:Hypercholester emia Take 1 tablet (40 mg) by mouth Once per day. 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 30 tablet 5 5 Active lisinopril-hydro CHLOROthiazide 20-25 MG tabletIndication s:Essential (primary) hypertension TAKE ONE TABLET EVERY MORNING 90 tablet 1 5 Active Descovy 200-25 MG tabletIndication s:Encounter for HIV pre-exposure prophylaxis TAKE ONE TABLET BY MOUTH EVERY MORNING 30 tablet 2 5 Active Tirzepatide (Mounjaro) 7.5 MG/0.5ML solution auto-injectorInd ications:Type 2 diabetes mellitus without complication, without long-term current use of insulin ([facility]) Inject 7.5 mg under the skin 1 (one) time per week. 2 mL 5 Active Tirzepatide (Mounjaro) 10 MG/0.5ML solution auto-injectorInd ications:Type 2 diabetes mellitus without complication, without long-term current use of insulin (CMS/HCC) Inject 10 mg under the skin 1 (one) time per week. 2 mL 2 5 Active Tirzepatide (Mounjaro) 10 MG/0.5ML solution auto-injectorInd ications:Obesity (BMI 30-39.9) Inject 10 mg under the skin 1 (one) time per week. 2 mL 2 5 025 Discontin ued(Dose adjustmen t) Active Problems Problem Noted Date Diagnosed Date Obesity (BMI 30-39.9) 09/29/2024 Herpes zoster without complication 06/25/2024 Assessment & Plan (06/25/2024 1:36 PM EDT): Recurrent Shingles infection. -prescribed Valacyclovir. -advised supportive care. -isolation recommendations discussed. -ER and return precautions given. Type 2 diabetes mellitus 12/25/2018 Assessment & Plan (11/17/2023 1:39 PM EST): Uncontrolled: A1C 8.1%. Advised to follow up with PCP pertaining to this concern. Hypertensive disorder 04/23/2018 Chronic low back pain 03/17/2018 Heel pain 03/17/2018 Asperger's disorder 08/21/2017 Depressive disorder 08/21/2017 Obstructive sleep apnea syndrome 08/21/2017 Resolved Problems Problem Noted Date Diagnosed Date Resolved Date Swelling of left eyelid 11/17/202304/13 Assessment & Plan (11/17/2023 1:37 PM EST): Patient that presented visit with complaints of swelling of L eyelid will be provided with x7 days of antibiotic and eye drops to treat concern. Recommended to notify office if symptoms don't improve. Dx: Conjunctivitis / Blepharitis. Encounters Date Type Department Care Team Description 06/02/2025 Travel 06/01/2025 Travel 05/12/2025 9:15 AM EDT Office Visit [facility] [address] [place] [address] Yordy Banda MD Type 2 diabetes mellitus without complication, without long-term current use of insulin (CMS/HCC) (Primary Dx); Obstructive sleep apnea syndrome; Primary hypertension; Obesity (BMI 30-39.9) 05/12/2025 Travel 05/11/[address] [facility] [address] [place] [address] Yordy Banda MD Chart Prep 05/10/2025 Travel 05/05/2025 Patient Outreach [facility] [address] [place] [address] Yordy Banda MD Pre-visit Planning (SDOH screening completed on 11/08/24) 05/02/2025 1:45 PM EDT Office Visit [facility] [address] [place], [place] [phone] Ami Verma, OD Type 2 diabetes mellitus without ophthalmic manifestations (CMS/HCC) (Primary Dx); Ectropion of both lower eyelids, unspecified ectropion type; Reduced visual acuity; Regular astigmatism, bilateral 05/02/2025 Travel 05/02/[address] [facility] [address] [place] [address] Yordy Banda MD Encounter for HIV pre-exposure prophylaxis 04/27/2025 Travel 04/27/[address] [facility] [address] [place] [address] Yordy Banda MD Essential (primary) hypertension 04/20/2025 Travel 03/30/2025 10:30 AM EDT Telemedicine [facility] [address] [place] [address] Cherie Fung, [place] Type 2 diabetes mellitus without complication, without long-term current use of insulin (CMS/HCC) (Primary Dx) 03/30/2025 Travel 03/29/2025 Travel from Last 3 Months Immunizations Immunization Administration Dates Next Due HepB-CpG 06/02/2025,04/20/2025 Influenza injectable quadriv alent IIV4 with preservative [...] Sign Reading Time Taken Comments Blood Pressure 122/74 06/02/2025 10:38 AM EDT Pulse 66 06/02/2025 10:38 AM EDT Temperature 36.4 C (97.6 F) 05/12/2025 9:18 AM EDT Respiratory Rate 20 05/12/2025 9:18 AM EDT Oxygen Saturation 97% 05/12/2025 9:18 AM EDT Inhaled Oxygen Concentration - - Weight 115 kg (254 lb) 05/12/2025 9:18 AM EDT Height 173.4 cm (5' 8.25 ) 05/12/2025 9:18 AM ED T Body Mass Index 38.34 05/12/2025 9:18 AM EDT Plan of Treatment Upcoming Encounters Date Type Department Care Team (Late st Contact Info) Description 07/28/2025 9:00 AM EDT Medication Management [facility] [address] [place] [address] Cherie Fung, PharmD [address] [place] [address] 08/04/2025 9:45 AM EDT Office Visit [facility] [address] [place] [address] Ami Verma, OD [address] [place] [address] Health Maintenance Due Date Last Done Comments Family Planning (PISQ) 1999 HPV Vaccines (1 - Male 3-dose series) 1999 Hepatitis A Vaccines (1 of 2 - Risk 2-dose series) 2003 Influenza Vaccine (#1) 2025 , 07/26/2021, 09/21/2020, Additional history exists Diabetes: Urine Protein Screening 08/20/2025 08/20/2024, 06/21/2024, 09/01/2020 Depression Monitoring 08/24/2025 02/21/2025, 025 Diabetes: Hemoglobin A1C 09/02/2025 025, 02/10/2025, 02/07/2025, Additional history exists Diabetes: Foot Exam 09/29/2025 09/29/2024, 07/10/2023, 07/10/2023, Additional history exists Disability Screening 11/01/2025 11/01/2024 Alcohol/Substance Use Screening 11/08/2025 11/08/2024 SDOH Screening 11/08/2025 11/08/2024 Lipid Panel 02/10/2026 02/10/2025, 090 06/2024, 09/01/2020 Tobacco Screening 05/02/2026 05/02/2025 Eye Exam 05/02/2027 05/02/2025, 04/13, 05/02/2025, Additional history exists DTaP/Tdap/Td Vaccines (2 - Td or Tdap) 10/20/2027 10/20/2017 Zoster Vaccines (1 of 2) 2034 RSV Patients and Patients Aged 60 years or older (1 - 1-dose 75+ series) 2059 Pneumococcal Vaccine: Pediatrics (0 to 5 Years) and At-Risk Patients (6 to 49) Years Completed 02/20/2023 COVID-19 Vaccine Completed 09/29/2024, 02/2022, 03/22/2021, Additional history exists Hepatitis C Screening Completed 10/21/2024, 024 HIV Screening Completed 02/10/2025, 05/0 10/2024, 10/21/2024, Additional history exists Hepatitis B Vaccines Completed 06/02/2025, 04/20/20 25 HIB Vaccines Aged Out No longer eligi [...] 10:51 AM EDT) No Prasanna Pryor PharmD Procedures Procedure Name Priority Date/Time Associated Diagnosis Comments POCT GLYCATED HEMOGLOBIN, TOTAL Routine 06/02/2025 10:51 AM EDT Type 2 diabetes mellitus without complication, without long-term current use of insulin ([facility]) POCT GLUCOSE Routine 05/12/2025 9:36 AM EDT Type 2 diabetes mellitus without complication, without long-term current use of insulin ([facility]) HIV 1/2 ANTIGEN/ANTIBODY, FOURTH GENERATION W/RFL Routine 02/10/2025 9:19 AM EDT LIPID PANEL, STANDARD Routine 02/10/2025 9:19 AM EDT HEPATITIS C ANTIBODY ([place] DPH) Routine 10/21/2024 ALBUMIN/CREATININE RATIO, RANDOM URINE Routine 08/20/2024 3:33 PM EST from Last 3 Months or Most Recently Relevant to Health Maintenance Results * (ABNORMAL) POCT A1c (06/02/2025 10:51 AM EDT) Hemoglobin A1C 8.7(A) 4.0 - 5.7 % QC Media Lot # [id number] Lot# Expiration Date Blood 06/02/2025 10:5 1 AM EDT Yordy Banda MD POINT OF CARE TEST ENTER/ED IT ORDERABLES Final Result * POCT Glucose (05/12/2025 9:36 AM EDT) Glucose Blood, POC 152 60 - 200 mg/dL QC Media Lot # [id number] Lot# Expiration Date ,025 Comment:random Blood Capillary blood specimen / Unknown 05/12/2025 9:36 AM EDT us Yordy Banda MD POINT OF CARE TEST ENTER/ED IT ORDERABLES Final Result * HIV-1/2 Antigen and Antibodies, Fourth Generation, with Reflexes (02/10/2025 9:19 AM EDT) HIV AB/AG Nonreactive Nonreactive [facility] Comment:HIV-1 p24 Ag and/or HIV-1/HIV-2 Ab not detected.A test result that is nonreactive does not exclude thepossibility of exposure to or infection with HIV-1 and/orHIV-2. Nonreactive results in this assay for individualswith prior exposure to HIV-1 and/or HIV-2 may be due toantigen and antibody levels that are below the limit ofdetection of this assay.The ConjecturniRetrophin HIV Ag/Ab Combo assay result andsupplemental assay results should be interpreted inconjunction with the patient's clinical presentation,history and other laboratory results. If the results areinconsistent with clinical evidence, additional testing issuggested to confirm the result. 02/10/2025 9:19 AM EDT 02/10/2025 2:12 PM EDT us Yordy Banda MD LAB BLOOD ORDERABLES Final Result [facility] [address] [place] [phone] * (ABNORMAL) Lipid Panel, Standard (02/10/2025 9:19 AM EDT) Triglycerides 378(H) <150 mg/dL [facility] Comment:Slight Lipemia.Jacinta able Triglyceride: less than 150 mg/dLBorderline High Triglyceride 150-199 mg/dLHigh Triglyceride: 200-499 mg/dLVery High Triglyceride: greater than or equal to 5OO mg/dL Cholesterol 173 <200 mg/dL [facility] Comment:Desirable Cholestero l: less than 200 mg/dLBorderline High Cholesterol: 200-239 mg/dLHigh Cholesterol: greater than 239 mg/dL LDL Cholesterol Calculated 69 <100 mg/dL [facility] Comment:Desirable LDL: less than 100 mg/dLNear Optimal/Above Optimal LDL: 110- 129 mg/dLBorderline High LDL: 130-159 mg/dLHigh LDL: 160-189 mg/dLVery High LDL: greater than or equal to 190 mg/dL HDL Cholesterol 29(L) >40 mg/dL [facility] Comment:Desirable HDL: great er than 40 mg/dL Note: This HDL assay may give artificially low results in patients with liver disease. 02/10/2025 9:19 AM EDT 02/10/2025 2:12 PM EDT Yordy Banda MD LAB BLOOD ORDERABLES Final Result [facility] [address] [place] [address] [phone] * Hepatitis C Antibody ([facility]) (10/21/2024) Hepatitis C Ab Nonreactive Blood 10/21/2024 Historical Provider LAB BLOOD ORDERABLES Ellie l Result * Albumin/Creatinine Ratio, Random Urine (08/20/2024 3:33 PM EST) Urine (Urine, Random) Historical Provider LAB URINE ORDERABLES Ellie l Result from Last 3 Months or Most Recently Relevant to Health Maintenance Insurance * Guarantor: Rudolph Baker Account Type Relation to Patient Date of Phone Billing Address Personal/Family Self [address] [place] [address] [employer] < 65 ANDREI DICKERSON [id number] Care Teams Drawing Frame Tender Relationship Specialty Start Date End Date Yordy Banda MD [address] [place] [address] PCP - General Internal Medicine 08/21/17 Cherie Fung PharmD [address] [place] [address] Pharmacist Internal Medicine 11/09/24
--- OUTSIDE RECORDS SUMMARY | 2025-06-12 21:23 | XMS_ITS | Encounter Summary ---
Author Organization [employer] Address 75 [facility] 7 [place] [address] Care Team Providers Care Tube Drawing Supervisor Name Role Phone Yordy Banda MD Primary Care Provider [phone] Prasanna Pryor PharmD Unavailable Unavail able Cherie Fung PharmD Unavailable [phone] Encounter Details Date Type Department Care Team ([facility] st Contact Info) Description 07/08/2024 Orders Only [facility] [address] [place], [place] [phone] Yordy Banda MD [address] [place] [address] Social History Tobacco Use Types Packs/Day Years [...] Description 07/28/2025 9:00 AM EDT Medication Management [facility] [address] [place], [place] [phone] Cherie Fung PharmD [address] [place] [address] 08/04/2025 9:45 AM EDT Office Visit [facility] [address] [place] [address] TarkaAmi, OD [address] [place] [address] documented as of this encounter Goals Goal [...] documented as of this encounter Care Teams Tube Drawing Supervisor Relationship Specialty Start Date End Date Yordy Banda MD [address] [place] [address] PCP - General Internal Medicine 08/21/17 Prasanna Pryor, PharmD [address] [place] [address] Pharmacist Internal Medicine 02/10/23 11/09/24 Cherie Fung, PharmD [address] [place] [address] Pharmacist Internal Medicine 11/09/24 documented as of this encounter
--- OUTSIDE RECORDS SUMMARY | 2025-06-12 21:23 | XMS_ITS | Encounter Summary ---
Author Organization [employer] Address 75 [facility] 7 [place] [address] Care Team Providers Care Senior Director Finance Name Role Phone Yordy Banda MD Primary Care Provider [phone] Cherie Fung PharmD Unavailable [phone] Encounter Details Date Type Department Care Team ([facility] Contact Info) Description 12/27/2024 Orders Only [facility] [address] [place], [place] [phone] Provider, MD Pavel Social History Tobacco Use [...] Description 07/28/2025 9:00 AM EDT Medication Management [facility] [address] [place] [address] Cherie Fung PharmD [address] [place] [address] 08/04/2025 9:45 AM EDT Office Visit [facility] [address] [place] [address] Tarka, Ami, OD [address] [place] [address] documented as of this encounter Goals Goal [...] documented as of this encounter Care Teams Senior Director Finance Relationship Specialty Start Date End Date Yordy Banda MD [address] [place] [address] PCP - General Internal Medicine 08/21/17 Cherie Fung PharmD [address] [place] [address] Pharmacist Internal Medicine 11/09/24 documented as of this encounter
--- OUTSIDE RECORDS SUMMARY | 2025-06-12 21:23 | XMS_ITS | Encounter Summary ---
Author Organization [employer] Address 75 [facility] 7 [place] [address] Care Team Providers Care Psychiatric Cns Name Role Phone Yordy Banda MD Primary Care Provider [phone] Prasanna Pryor PharmD Unavailable Unavail able Cherie Fung PharmD Unavailable [phone] Encounter Details Date Type Department Care Team ([facility] Contact Info) Description 08/24/2024 Orders Only [facility] [address] [place] [address] Provider, MD Pavel Social History Tobacco Use [...] t he electric, gas, oil or water [employer] 1 threatened to shut off services in your [...] AM EDT Medication Management [facility] [address] [place] [address] Cherie Fung PharmD [address] [place] [address] 08/04/2025 9:45 AM EDT Office Visit [facility] [address] [place] [address] TarkaAmi, OD [address] [place] [address] documented as of this encounter Goals Goal [...] documented as of this encounter Care Teams Psychiatric Cns Relationship Specialty Start Date End Date Yordy Banda MD [address] [place] [address] PCP - General Internal Medicine 08/21/17 Prasanna Pryor, JoannD [address] [place] [address] Pharmacist Internal Medicine 02/10/23 11/09/24 Cherie Fung PharmD [address] [place] [address] Pharmacist Internal Medicine 11/09/24 documented as of this encounter
--- OUTSIDE RECORDS SUMMARY | 2025-06-12 21:23 | XMS_ITS | Encounter Summary ---
Author Organization [employer] Address 75 [facility] 7 [place] [address] Care Team Providers Care Terrazzo Journeyman Name Role Phone Yordy Banda MD Primary Care Provider [phone] Prasanna Pryor PharmD Unavailable Unavail able Cherie Fung PharmD Unavailable [phone] Reason for Visit * Reason Comments Med Refill Encounter Details Date Type Department Care Team ([facility] st Contact Info) Description 07/13/2024 Refill [facility] [address] [place], [place] [phone] Yordy Banda MD [address] [place] [address] Encounter for HIV pre-exposure prophylaxis Social History [...] Description 07/28/2025 9:00 AM EDT Medication Management [facility] [address] [place] [address] Cherie Fnug PharmD [address] [place] [address] 08/04/2025 9:45 AM EDT Office Visit [facility] [address] [place] [address] Ami Verma, OD [address] [place] [address] documented as of this encounter Goals Goal [...] documented as of this encounter Care Teams Terrazzo Journeyman Relationship Specialty Start Date End Date Yordy Banda MD [address] [place] [address] PCP - General Internal Medicine 08/21/17 Prasanna Pryor, PharmD [address] [place] [address] Pharmacist Internal Medicine 02/10/23 11/09/24 Cherie Fung, JoannD [address] [place] [address] Pharmacist Internal Medicine 11/09/24 documented as of this encounter
--- OUTSIDE RECORDS SUMMARY | 2025-06-12 21:23 | XMS_ITS | Encounter Summary ---
Author Organization [employer] [facility] Address [address] [place] [address] 7 [place] [address] Care Team Providers Care Police Officer Booking Name Role Phone Yordy Banda MD Primary Care Provider [phone] Prasanna Pryor PharmD Unavailable Unavail able Cherie Fung PharmD Unavailable Reason for Referral * Imaging (Routine) - Closed Specialty Diagnoses / Procedures Referred By Alber poole Referred To Contact Radiology Diagnoses Hypertriglyceridemia Transaminitis Procedures US Abdomen Complete Yordy Banda MD [address] [place] [address] Phone: tel: fax: [facility] [address] [place], [place] Phone: tel: fax: Referral ID Status Reason Start Date Expiration Date Visits Re quested Visits Authorized [id number] Closed 06/22/2024 06/22/2025 1 1 Encounter Details Date Type Department Care Team (Latest Contact Info) Description 06/22/2024 Orders Only [facility] [address] [place], [place] [phone] Yordy Banda MD [address] [place], [place] [phone] Hypertriglyceridemia (Primary Dx); Transaminitis Social History Tobacco [...] Description 07/28/2025 9:00 AM EDT Medication Management [facility] [address] [place] [address] Cherie Fung PharmD [address] [place] [address] 08/04/2025 9:45 AM EDT Office Visit [facility] [address] [place] [address] TarAmi bales, OD [address] [place] [address] documented as of this encounter Goals Goal [...] documented as of this encounter Care Teams Police Officer Booking Relationship Specialty Start Date End Date Yordy Banda MD [address] [place] [address] PCP - General Internal Medicine 08/21/17 Prasanna Pryor, PharmD 505 [place] [address] Pharmacist Internal Medicine 02/10/23 11/09/24 Cherie Fung, [place] [address] [place] [address] Pharmacist Internal Medicine 11/09/24 documented as of this encounter
--- OUTSIDE RECORDS SUMMARY | 2025-06-12 21:23 | XMS_ITS | Encounter Summary ---
Author Organization [employer] Address [address] [place] [address] 7 [place] [address] Care Team Providers Care German Professor Name Role Phone Yordy Banda MD Primary Care Provider [phone] Cherie Fung PharmD Unavailable [phone] Encounter Details Date Type Department Care Team (Latest Contact Info) Description 02/06/2025 Orders Only [facility] [address] [place], [place] [phone] Yordy Banda MD [address] [place] [address] Hypercholesteremia (Primary Dx) Social History Tobacco Use [...] Upcoming Encounters Date Type Department Care Team ([facility] st Contact Info) Description 07/28/2025 9:00 AM EDT Medication Management [facility] [address] [place] [address] Cherie Fung, PharmD [address] [place] [address] 08/04/2025 9:45 AM EDT Office Visit [facility] [address] [place] [address] Ami Verma, OD [address] [place] [address] documented as of this encounter Goals Goal [...] documented as of this encounter Care Teams German Professor Relationship Specialty Start Date End Date Yordy Banda MD [address] [place] [address] PCP - General Internal Medicine 08/21/17 Cherie Fung, PharmD [address] [place] [address] Pharmacist Internal Medicine 11/09/24 documented as of this encounter
--- OUTSIDE RECORDS SUMMARY | 2025-06-12 21:23 | XMS_ITS | Encounter Summary ---
Author Organization [employer] Address [address] [facility] 7 [place] [address] Care Team Providers Care Food And Beverage Order Clerk Name Role Phone Yordy Banda MD Primary Care Provider [phone] Cherie Fung PharmD Unavailable [phone] Reason for Visit * Reason Onset Date Comments Appointment Request 12/23/2024 Encounter Details Date Type Department Care Team ([facility] Contact Info) Description 12/23/2024 Telephone [facility] PEDS [address] [place], [place] [phone] Yordy Banda MD [address] [place] [address] Appointment Request Social History Tobacco Use Types [...] r/s today's CDTM visit. Contact pt at [phone] documented in this encounter Plan of Treatment Upcoming Encounters Date Type Department Care Team (Late st Contact Info) Description 07/28/2025 9:00 AM EDT Medication Management [facility] [address] [place] [address] Cherie Fung, PharmD [address] [place] [address] 08/04/2025 9:45 AM EDT Office Visit [facility] OPTOMETRY [address] [place] [address] TarkaAmi, OD [address] [place] [address] documented as of this encounter Goals Goal [...] documented as of this encounter Care Teams Food And Beverage Order Clerk Relationship Specialty Start Date End Date Yordy Banda MD [address] [place] [address] PCP - General Internal Medicine 08/21/17 Cherie Fung PharmD [address] [place] [id number] Pharmacist Internal Medicine 11/09/24 documented as of this encounter
--- OUTSIDE RECORDS SUMMARY | 2025-06-12 21:23 | XMS_ITS | Encounter Summary ---
Author Organization [employer] Address [address] [facility] 7 [place] [address] Care Team Providers Care Wire Mesh Filter Fabricator Name Role Phone Yordy Banda MD Primary Care Provider [phone] Cherie Fung PharmD Unavailable [phone] Reason for Visit * Reason Onset Date Comments Appointment Request 12/02/2024 Encounter Details Date Type Department Care Team ([facility] Contact Info) Description 12/02/2024 Telephone [facility] MEDICINE [address] [place] [address] Yordy Banda MD [address] [place], [place] [phone] Appointment Request Social History Tobacco Use Types [...] r/s Appt from 12/02/24. Contact pt at [phone] documented in this encounter Plan of Treatment Upcoming Encounters Date Type Department Care Team (Late st Contact Info) Description 07/28/2025 9:00 AM EDT Medication Management [facility] MED & PEDS [address] [place] [address] Cherie Fung PharmD [address] [place] [address] 08/04/2025 9:45 AM EDT Office Visit [facility] OPTOMETRY [address] [place] [address] Tarka, Ami, OD [address] [place] [address] documented as of this encounter Goals Goal [...] documented as of this encounter Care Teams Wire Mesh Filter Fabricator Relationship Specialty Start Date End Date Yordy Banda MD [address] [place] [address] PCP - General Internal Medicine 08/21/17 Cherie Fung PharmD [address] [place] [id number] Pharmacist Internal Medicine 11/09/24 documented as of this encounter
--- OUTSIDE RECORDS SUMMARY | 2025-06-12 21:23 | XMS_ITS | Encounter Summary ---
Author Organization [employer] Address [address] [facility] [address] [place] [address] Care Team Providers Care Metal Die Finisher Name Role Phone Yordy Banda MD Primary Care Provider [phone] Prasanna Pryor PharmD Unavailable Unavail able Cherie Fung PharmD Unavailable [phone] Reason for Visit * Reason Onset Date Comments Results 07/30/2024 Encounter Details Date Type Department Care Team ([facility] st Contact Info) Description 07/30/2024 Telephone [facility] MEDICINE [address] [place] [address] Yordy Banda MD [address] [place] [address] Results Social History Tobacco Use Types Packs/Day [...] Description 07/28/2025 9:00 AM EDT Medication Management [facility] MED [facility] PEDS [address] [place] [address] Cherie Fung PharmD [address] [place] [address] 08/04/2025 9:45 AM EDT Office Visit [facility] OPTOMETRY [address] [place] [address] TarkaAmi, OD [address] [place] [address] documented as of this encounter Goals Goal [...] documented as of this encounter Care Teams Metal Die Finisher Relationship Specialty Start Date End Date Yordy Banda MD [address] [place] [address] PCP - General Internal Medicine 08/21/17 Prasanna Pryor, JoannD [address] [place] [address] Pharmacist Internal Medicine 02/10/23 11/09/24 Cherie Fung PharmD [address] [place] [address] Pharmacist Internal Medicine 11/09/24 documented as of this encounter
== END ==
LOC: HO.SL 20:30
PROVIDERS: PCP Internal Medicine; Visit Provider Internal Medicine
DX: G47.33 Obstructive sleep apnea (adult) (pediatric) (principal); R06.83 Snoring
CPT/HCPCS: 95810

== ENCOUNTER → 2025-06-12 21:00 | Outpatient (BNV) | payer OTHER, SELFPAY | PROVIDERS: PCP Internal Medicine; Visit Provider Internal Medicine | DX: G47.33 Obstructive sleep apnea (adult) (pediatric) (principal); R06.83 Snoring | CPT/HCPCS: 95810 ==